=== PATIENT | male | born 1970 | race Caucasian/White ===

== ENCOUNTER 2016-12-20 09:10 | Emergency (ER) | payer MEDICAID, OTHER ==
[2016-12-20 09:16] VITALS: BP 134/88; PULSE 92; RESP 18; TEMP 98.6; O2SAT 93
--- NOTE | 2016-12-20 09:33 | EDPHY ---
H & P Time Seen by Provider: 12/20/16 09:23 HPI/ROS: CHIEF COMPLAINT: "Something popped in my toe" HISTORY OF PRESENT ILLNESS: 46-year-old male history of diabetes, homelessness , walked to the emergency department for evaluation of left 5th toe discomfort after he was walking earlier today " and felt a self-described "pop". He is able to bear weight. No fall from height. No discoloration. No deformity. No fever no chills. No discoloration. He is able to bear weight. He ambulates at baseline with a cane. PHYSICAL EXAM (Prior to examination, patient consented to physical exam, hands were washed and my usual and customary physical exam procedures followed) 1) GENERAL: Well-developed, well-nourished, alert and oriented. Appears to be in no acute distress. 2) HEAD: Normocephalic 3) HEENT: Pupils equal, round, reactive to light bilaterally. 4) LUNGS: Breathing comfortably. 5) MUSCULOSKELETAL: No visible deformity to visualization or palpation. Focally tender to palpation 5th MTP. Normal color normal temperature. No pain with axial loading of the joint. proximal tibia and fibula nontender .5th MT nontender negative Thomas test, compartments soft 6) SKIN: intact. No ecchymosis. No tenting. 7) VASCULAR: DP,PT pulses and cap refill present and brisk DIFFERENTIAL DIAGNOSIS: in no particular order including but not limited to fracture, sprain, compartment syndrome Procedure: Splint A postop shoe and sg tape splint was applied by ER emergency veterinary technician. After application of the splint I returned and re-examined the patient. The splint was adequately immobilizing the joint and distal to the splint the patient's circulation and sensation were intact. Patient shows no signs of compartment syndrome. Was given orthopedic precautions. Smoking Status: Never smoked Constitutional: Initial Vital Signs Temperature (C) 37 C 12/20/16 09:12 Heart Rate 92 12/20/16 09:12 Respiratory Rate 18 12/20/16 09:12 Blood Pressure 134/88 H 12/20/16 09:12 O2 Sat (%) 93 12/20/16 09:12 O2 Delivery Mode Room Air Allergies/Adverse Reactions: fluoxetine HCl [From Prozac] Allergy (Verified 12/20/16 09:12) Home Medications: Medication Instructions Recorded Ipratropium/Albuterol [Combivent 2 inh IH DAILY PRN 12/26/15 Respimat Inhal [place](*)] Amox Tr/K Clav (Augmentin) 1 each PO 12/20/16 [Augmentin 500/125 MG TAB (*)] Benzonatate [Tessalon Pearles (RX)] 100 mg PO 12/20/16 Ibuprofen [Motrin (*)] 600 mg PO 12/20/16 Insulin Aspart Novolog 70/30 0 ml SC 12/20/16 [Novolog Mix 70/30 (*)] Insulin Degludec [Tresiba 0 unit SQ 12/20/16 Flextouch U-200] MDM/Departure - MDM Imaging Results: Imaging Impressions Foot X-Ray 12/20/16 09:31 Impression: Nothing acute radiographically. Images reviewed by myself - Depart Disposition: Home, Routine, Self-Care Clinical Impression: Left foot pain Condition: Good Instructions: Foot Sprain (ED) Additional Instructions: Return to the ER immediately if you experience discoloration, have worsening pain, numbness, tingling, or any other symptoms that concern you. If you received x-rays in the emergency department today, be advised, that ligamentous , tendon, muscular, and other non-bony injury cannot be fully ruled out. Try to keep your affected extremity elevated above the level of your chest, and keep cold packs on the affected area, for the next 48 hours. Referrals: [facility],. [Clinic] - 2-3 days, call for appt.
== END 2016-12-20 10:00 | disposition home or self-care (01) ==
DX: M79.675 Pain in left toe(s) (principal); Z79.4 Long term (current) use of insulin

== ENCOUNTER 2016-12-28 07:30 | Emergency (ER) | payer MEDICAID ==
[2016-12-28 07:43] VITALS: RESP 18; TEMP 97.7
--- NOTE | 2016-12-28 08:32 | EDPHY ---
H & P Time Seen by Provider: 12/28/16 08:11 HPI/ROS: CHIEF COMPLAINT: Right-sided hip and leg pain. HISTORY OF PRESENT ILLNESS: The patient is a 46-year-old male who presents via EMS with one week of right-sided hip pain radiating to his right knee. He has a history of sciatica in his left hip and this feels similar. The pain is worsened with movement. He denies traumas or injury. He denies numbness, weakness, or paresthesias. He has seen [facility] for this complaint and was given a muscle relaxant and pain medication. REVIEW OF SYSTEMS: A complete 10-point review of systems was performed and is negative except for those items mentioned in the HPI. Past Medical/Surgical History: Orthopedic surgeries, hypertension, depression, heart murmur, diabetes type II, chronic pain, sleep apnea. Social History: Homeless. Smoking Status: Never smoked Physical Exam: General Appearance: Alert, obese, appears in pain with movement Eyes: Pupils equal and round, no conjunctival pallor Neck: Normal inspection Neurological: A&O, motor 5/5, including dorsiflexion of the ankle and 1st toe, 1+ DTRs in lower extremities, normal gait Back: Normal inspection, no tenderness Skin: Warm and dry, no rash Extremities: Nontender, no pedal edema Psychiatric: Mood and affect normal Constitutional: Initial Vital Signs Temperature (C) 36.5 C 12/28/16 07:41 Heart Rate 69 12/28/16 07:41 Respiratory Rate 18 12/28/16 07:41 Blood Pressure 161/88 H 12/28/16 07:41 O2 Sat (%) 98 12/28/16 07:41 O2 Delivery Mode Room Air Allergies/Adverse Reactions: fluoxetine HCl [From Prozac] Allergy (Verified 12/20/16 09:12) marijuana Allergy (Verified 12/28/16 07:40) Home Medications: Medication Instructions Recorded Ipratropium/Albuterol [Combivent 2 inh IH DAILY PRN 12/26/15 Respimat Inhal [place](*)] Amox Tr/K Clav (Augmentin) 1 each PO 12/20/16 [Augmentin 500/125 MG TAB (*)] Benzonatate [Tessalon Pearles (RX)] 100 mg PO 12/20/16 Ibuprofen [Motrin (*)] 600 mg PO 12/20/16 Insulin Aspart Novolog 70/30 0 ml SC 12/20/16 [Novolog Mix 70/30 (*)] Insulin Degludec [Tresiba 0 unit SQ 12/20/16 Flextouch U-200] GABAPENTIN 12/28/16 Hydrocodone/Acetaminophen 1 - 2 tab PO Q4H PRN #15 tab 12/28/16 [Hydrocodon-Acetaminophen 5-300] Ibuprofen 600 mg PO TID #30 tablet 12/28/16 Medical Decision Making ED Course/Re-evaluation: 46-year-old obese male with a history of left sciatica presents with a week of atraumatic pain that radiates from his right hip to right knee. He has a normal neuro exam. He will be given a Lidocaine patch and 2 tabs PO [place] in the ED. I have given him prescriptions for Vicodin and Ibuprofen for pain control. He understands to follow up with [facility]. Differential Diagnosis: Differential diagnosis for back pain includes muscular pain, herniated disc, epidural abscess, discitis, spine fracture, intra-abdominal causes and urinary tract infection. - Data Points Medications Given: Discontinued Medications Hydrocodone Bitart/Acetaminophen ([place] 5/325) 2 tab PO EDNOW ONE Stop: 12/28/16 08:45 Last Admin: 12/28/16 09:02 Dose: 2 tab Lidocaine (Lidoderm 5%) 1 ea TD EDNOW ONE Stop: 12/28/16 08:44 Last Admin: 12/28/16 09:02 Dose: 1 ea Departure - Departure Disposition: Home, Routine, Self-Care Clinical Impression: Right sided sciatica Condition: Good Instructions: Sciatica (ED), Lower Back Exercises (ED) Additional Instructions: Follow up with [facility] for reevaluation. Take 600mg Ibuprofen 3 times daily for pain as prescribed. Take Vicodin as prescribed for pain not controlled by Ibuprofen. Return for any serious worsening of condition. Referrals: [facility],. [Clinic] - As per Instructions Prescriptions: Hydrocodone/Acetaminophen [Hydrocodon-Acetaminophen 5-300] 1 - 2 tab PO Q4H PRN #15 tab PRN Reason: Pain, Moderate Ibuprofen 600 mg PO TID #30 tablet Report Scribed for: Talia Ritchie Report Scribed by: Caleb Bajwa Date of Report: 12/28/16 Time of Report: 08:29 Physician Review and Approval Statement: 12/28/16 08:29 Portions of this note were transcribed by a medical reviewer. I personally performed a history, physical exam, medical decision making, and confirmed accuracy of information the transcribed note.
[2016-12-28] MEDS ORDERED: LIDOCAINE 5% 1 EA PATCH TD ONE (08:43)
[2016-12-28] MEDS ORDERED: HYDROCODONE/APAP 5/325 TAB PO ONE (08:44)
[2016-12-28 09:15] VITALS: BP 156/105; PULSE 86; O2SAT 96
== END 2016-12-28 09:24 | disposition home or self-care (01) ==
LOC: EDUNIT#
DX: M54.31 Sciatica, right side (principal); I10 Essential (primary) hypertension; E11.9 Type 2 diabetes mellitus without complications; Z79.4 Long term (current) use of insulin

== ENCOUNTER 2017-01-29 08:48 | Emergency (ER) | payer MEDICAID ==
[2017-01-29] MEDS ORDERED: HYDROmorphONE/DILAUDID 1 MG/ML SYR IVP ONE (09:31)
[2017-01-29] MEDS ORDERED: KETOROLAC 30 MG/1 ML SDV IVP ONE (09:31)
[2017-01-29] MEDS ORDERED: NS 1,000 ML IV ONE (09:31)
--- NOTE | 2017-01-29 09:39 | EDPHY ---
H & P Time Seen by Provider: 01/29/17 08:55 HPI/ROS: HPI Right lower back pain, sciatica. 46-year-old male on foot. Currently homeless and staying at the homeless alf. History of right-sided sciatica. Reports that he got up from bed and twisted his right hip awkwardly this morning which exacerbated his right-sided sciatica. He complains of pain from the right lower back down through his right buttock and down through his right lower extremity to the lower calf area. No bowel or bladder incontinence. He denies loss of sensation or weakness in his lower extremities. No fever. No history of malignancy. He is not an IV drug user. No other red flags. ROS: Constitutional: No fever, no chills. No weakness. Respiratory: No cough. No shortness of breath. Cardiac: No chest pain, no palpitations. Gastrointestinal: No abdominal pain, no vomiting, no diarrhea. Genitourinary: No hematuria. No dysuria or increased frequency with urination. Musculoskeletal: As above. No neck pain. No myalgias or arthralgias. Skin: No rashes. Neurological: No headache. No focal weakness or altered sensation. Past medical history: Social history: Physical Exam: General Appearance: Alert, he appears uncomfortable. Obese habitus. This patient is responding to questions appropriately and in full sentences. This patient appears well-hydrated and well-nourished. Eyes: Pupils equal and round no pallor or injection. No lid edema, erythema or injection. Back exam: He has got right-sided lower lumbar paraspinal tenderness on palpation at the level of L4 through S1 as well as tenderness on palpation over the right sacroiliac joint. No soft tissue changes associated. He has a positive same side straight leg raise test and a negative cross side straight leg raise test. He is neurologically intact in all myotomes in dermatomes of the bilateral lower extremities. Gastrointestinal: Abdomen is soft and nontender, no masses, bowel sounds normal. No focal tenderness at McBurney's point. No Fernandez sign. Neurological: Motor sensory function is grossly intact. Cranial nerves are normal. Gait is normal. Skin: Warm and dry, no rashes. Musculoskeletal: Neck is supple and nontender. Extremities are symmetrical. All joints range without pain or impingement. Psychiatric: No agitation. No depression. Database: EKG: Imaging: Right hip x-ray series: Negative for fracture, subluxation, dislocation. Interpreted by me. Procedures: Emergency department course: IV placed. He was placed on a monitor. No contraindications to NSAIDs. No history of renal dysfunction. He will be given 30 mg of IV Toradol and 1 mg of IV hydromorphone for his sciatica pain. He will also be given 10 mg of IV Decadron. Right hip series x-ray obtained. 10:40 a.m., patient re-evaluated. Results of his x-ray discussed with him. Repeat neurologic Assessment is nonfocal. He is able to get out of bed and ambulate on his own. He states that he feels better and the medications have helped. Plan will be to discharge him with spinal referral as well as follow up with his primary care physician. I will send him home with a take-home pack of Oketo. Return to emergency department precautions were reviewed with him. He understands his follow-up. All of his questions were answered. He was discharged in good condition. Differential Diagnosis: The differential diagnosis on this patient includes but is not limited to sciatica. Fracture, subluxation, dislocation, cauda equina syndrome, acute radiculopathy unlikely. This represents a partial list of diagnoses considered. These considerations are based on history, physical exam, past history, reassessment and diagnostic testing. Smoking Status: Never smoked Constitutional: Initial Vital Signs Temperature (C) 36.8 C 01/29/17 08:55 Heart Rate 87 01/29/17 08:55 Respiratory Rate 16 01/29/17 08:55 Blood Pressure 136/95 H 01/29/17 08:55 O2 Sat (%) 96 01/29/17 08:55 O2 Delivery Mode Room Air Allergies/Adverse Reactions: fluoxetine HCl [From Prozac] Allergy (Verified 01/29/17 09:30) marijuana Allergy (Verified 01/29/17 09:30) Home Medications: Medication Instructions Recorded ASPIRIN 01/29/17 GABAPENTIN 01/29/17 Hydrocodone 01/29/17 Lisinopril 01/29/17 Meloxicam 01/29/17 Medical Decision Making - Diagnostics Imaging Results: Imaging Impressions Hip X-Ray 01/29/17 09:32 Impression: Negative radiographs of the right hip. - Data Points Medications Given: Discontinued Medications Hydromorphone HCl (Dilaudid) 1 mg IVP EDNOW ONE Stop: 01/29/17 09:32 Last Admin: 01/29/17 09:45 Dose: 1 mg Sodium Chloride (Ns) 1,000 mls @ 0 mls/hr IV ONCE ONE; Wide Open PRN Reason: Protocol Stop: 01/29/17 09:32 Last Admin: 01/29/17 09:47 Dose: 1,000 mls Ketorolac Tromethamine (Toradol) 30 mg IVP EDNOW ONE Stop: 01/29/17 09:32 Last Admin: 01/29/17 09:45 Dose: 30 mg Departure - Departure Disposition: [facility] IP Clinical Impression: Sciatica Condition: Good Instructions: Sciatica (ED) Additional Instructions: Read and follow provided instructions. Follow-up with your primary care physician at [facility] in 1-2 days for re -evaluation and ongoing management of your sciatica. They can also refer you to a spinal specialist.. O[place]o/Percocet dosin-2 every 4-[address] not drive on this medication. Return to the emergency department for worsening pain, loss of sensation in your lower extremities, loss of strength in her lower extremities, bowel or bladder incontinence, fever or other serious concerns. Referrals: [facility],. [Clinic] - As per Instructions
[2017-01-29] MEDS ORDERED: DEXAMETHASONE 10 MG/ML VIAL IVP ONE (10:04)
[2017-01-29] MEDS ORDERED: HYDROCOD/APAP 5/325 PREPACK#6 BTL TAKEHOME ONE (10:45)
[2017-01-29 11:26] VITALS: BP 127/86; PULSE 81; RESP 17; TEMP 98.4; O2SAT 95
== END 2017-01-29 11:25 | disposition home or self-care (01) ==
LOC: EDUNIT#
DX: M54.41 Lumbago with sciatica, right side (principal); Z79.82 Long term (current) use of aspirin
CPT/HCPCS: 96374; J1170; J1885

== ENCOUNTER 2017-01-30 08:35 | Emergency (ER) | payer MEDICAID ==
[2017-01-30 08:51] VITALS: RESP 18
[2017-01-30] MEDS ORDERED: OXYCODONE/APAP 5/325 TAB PO ONE (09:08)
[2017-01-30] MEDS ORDERED: KETOROLAC 30 MG/1 ML SDV IM ONE (09:08)
--- NOTE | 2017-01-30 09:15 | EDPHY ---
H & P Smoking Status: Never smoked Time Seen by Provider: 01/30/17 08:56 HPI/ROS: CHIEF COMPLAINT: Chronic Leg pain HISTORY OF PRESENT ILLNESS: This is a 46-year-old male presenting to the emergency department complaining of right leg pain. Patient was seen yesterday here in the ER for the same symptoms, diagnosed with sciatica also constipation. Patient is sent home with pain medicine but did not take it, this is a chronic condition per patient due to his constant activity and having to carry his bags back and forth to the custodial. Patient states he is having an increased pain because the custodial that he is at will not let him leave his tool box on wheels at the custodial and he is having constantly move it. Denies any new complaints no nausea no vomiting. Discharge last night ambulatory without any problems REVIEW OF SYSTEMS: Constitutional: No fever, no chills. Eyes: No discharge. ENT: No sore throat. Cardiovascular: No chest pain, no palpitations. Respiratory: No cough, no shortness of breath. Gastrointestinal: No abdominal pain, no vomiting. Constipation Genitourinary: No hematuria. Musculoskeletal: No back pain. Right hip/right leg pain Skin: No rashes. Neurological: No headache. (Sofia Farrar) Physical Exam: General Appearance: Alert, no distress. Obese Eyes: Pupils equal and round no pallor or injection. ENT, Mouth: Mucous membranes moist. Respiratory: There are no retractions, nonlabored respiratory effort Cardiovascular: Regular rate and rhythm. Gastrointestinal: Abdomen is soft and nontender, no masses, bowel sounds normal. Neurological: No focal deficits Skin: Warm and dry, no rashes. Musculoskeletal: Neck is supple nontender. Extremities: Right hip tenderness on palpation, right hamstring tenderness on palpation positive right lower extremity straight leg raises. Positive CMS intact Psychiatric: Patient is oriented X 3, acting appropriate (Sofia Farrar) Constitutional: Initial Vital Signs Temperature (C) 37 C 01/30/17 08:35 Heart Rate 72 01/30/17 08:35 Respiratory Rate 18 01/30/17 08:35 Blood Pressure 136/87 H 01/30/17 08:35 O2 Sat (%) 97 01/30/17 08:35 O2 Delivery Mode Room Air Allergies/Adverse Reactions: fluoxetine HCl [From Prozac] Allergy (Verified 01/29/17 09:30) marijuana Allergy (Verified 01/29/17 09:30) Home Medications: Medication Instructions Recorded ASPIRIN 01/29/17 GABAPENTIN 01/29/17 Hydrocodone 01/29/17 Lisinopril 01/29/17 Meloxicam 01/29/17 Lidocaine 5% [Lidoderm 5% Patch 1 ea TD DAILY #3 patch 01/30/17 (*)] Medical Decision Making ED Course/Re-evaluation: The patient was evaluated and managed by the INCL[facility]. My cosignature indicates that I reviewed the chart and I agree with the findings and plan of care as documented. I am the secondary supervising physician. (Jami Hendrickson) Discussed ED plan of care: IM Toradol, p.o. pain medicine, Mag citrate. Reviewed records from visit on 01/29/2017. Also discussed with patient chronic sciatica there is no quick fix for this condition, to matter decreasing prolonged pressure frequent position changes also ibuprofen can be beneficial. 0945: Discussed discharge plan with patient. Follow up with primary care physician at [facility] either Saturday or Saturday. Decrease any prolonged pressure or strenuous activity. I would also recommend talking with the custodial to see if there is a way that you can store your heavy tool bags severe not having to be dragging it around. MiraLax on a daily basis for the next 7 days, also narcotics can be a contributing factor to your constipation. I would not be giving him any narcotics to go, you have had a prescription refill on 12/28/2016 and 01/23/2017 for number 30 of [place] per the COPD. 1000: Case management at patient bedside. Discharge home---> stable, ambulatory with steady gait. Discussed all discharge instructions (Sofia Farrar ) Differential Diagnosis: Other differential diagnosis considered but not limited to sciatica, constipation, and hip dislocation (Sofia Farrar) - Data Points Medications Given: Discontinued Medications Ketorolac Tromethamine (Toradol) 60 mg IM EDNOW ONE Stop: 01/30/17 09:09 Last Admin: 01/30/17 09:17 Dose: 60 mg Lidocaine (Lidoderm 5%) 1 ea TD DAILY EMILY Stop: 07/30/17 08:59 Last Admin: 01/30/17 10:22 Dose: 1 ea Magnesium Citrate (Magnesium Citrate) 300 ml PO ONCE ONE Stop: 01/30/17 09:19 Last Admin: 01/30/17 09:25 Dose: 300 ml Oxycodone/Acetaminophen (Percocet 5/325) 1 tab PO EDNOW ONE Stop: 01/30/17 09:09 Last Admin: 01/30/17 09:17 Dose: 1 tab Departure - Departure Disposition: Home, Routine, Self-Care Clinical Impression: Sciatica of right side Condition: Good Instructions: Constipation (ED), High Fiber Diet (ED), Sciatica (ED), Lower Back Exercises (ED) Referrals: NONE *PRIMARY CARE P,. [Primary Care Provider] - As per Instructions [facility],. [Clinic] - As per Instructions Prescriptions: Lidocaine 5% [Lidoderm 5% Patch (*)] 1 ea TD DAILY #3 patch
[2017-01-30] MEDS ORDERED: MAGNESIUM CITRATE 300 ML BOTTLE PO ONE (09:18)
[2017-01-30] MEDS ORDERED: LIDOCAINE 5% 1 EA PATCH TD ONE (10:13)
[2017-01-30 10:26] VITALS: BP 141/85; PULSE 85; TEMP 98.4; O2SAT 96
[2017-01-30] MEDS ORDERED: PATCH REMOVAL 1 EA PATCH TD SCH (21:00)
[2017-01-31] MEDS ORDERED: LIDOCAINE 5% 1 EA PATCH TD SCH (09:00)
== END 2017-01-30 10:25 | disposition home or self-care (01) ==
LOC: EDUNIT#
DX: M54.31 Sciatica, right side (principal); Z79.82 Long term (current) use of aspirin
CPT/HCPCS: J1885

== ENCOUNTER 2017-02-16 11:09 | Emergency (ER) | payer MEDICAID ==
--- NOTE | 2017-02-16 11:17 | EDPHY ---
ED Progress Note Narrative: Sofia Farrar and I discussed the case. This patient has a chronic pain problem. He has numerous pain medicines and muscle relaxants as he just size PCP yesterday. There is nothing more we can do here in the emergency department for his chronic pain. We will give him a Lidoderm patch possibly with capsaicin this patient does not require any imaging
--- NOTE | 2017-02-16 11:22 | EDPHY ---
H & P Time Seen by Provider: 02/16/17 11:12 HPI/ROS: CHIEF COMPLAINT: sciatica HISTORY OF PRESENT ILLNESS: This is a 46-year-old male presenting to the emergency department via EMS, patient reports history of chronic leg pain chronic sciatica has been seen here in the emergency department multiple times for same problem. Patient states he did see his PCP yesterday was given prescription for Percocet meloxicam has medication with him, he reports he has been doing an increased amount walking but he is not having to carry around or pull his heavy tool chest which is a benefit. We have discussed him following up with this primary care this week to continue with physical therapy no pain medications are going to be prescribed because the fact he has pain medications with him discussed placing a lidocaine patch to the area of discomfort. Denies any new complaints or new medical problems REVIEW OF SYSTEMS: Constitutional: No fever, no chills. Eyes: No discharge. ENT: No sore throat. Cardiovascular: No chest pain, no palpitations. Respiratory: No cough, no shortness of breath. Gastrointestinal: No abdominal pain, no vomiting. Genitourinary: No hematuria. Musculoskeletal: Chronic lower back pain, right leg pain sciatica Skin: No rashes. Neurological: No headache. Smoking Status: Never smoked Physical Exam: General Appearance: Alert, no distress. HEENT: Pupils equal and round no pallor or injection. Mucous membranes moist. Respiratory: There are no retractions, lungs are clear to auscultation. Cardiovascular: Regular rate and rhythm. Gastrointestinal: Abdomen is soft and nontender, no masses, bowel sounds normal. Neurological: No focal deficits. Answering questions appropriately Skin: Warm and dry, no rashes. Musculoskeletal: Neck is supple nontender. Extremities: symmetrical, right leg hamstring tenderness on palpation. Positive right straight leg raises. Ambulatory with a cane Psychiatric: Patient is oriented X 3, acting appropriately Constitutional: Initial Vital Signs Temperature (C) 36.6 C 02/16/17 11:15 Heart Rate 69 02/16/17 11:15 Respiratory Rate 19 02/16/17 11:15 Blood Pressure 130/82 H 02/16/17 11:15 O2 Sat (%) 97 02/16/17 11:15 O2 Delivery Mode Room Air Allergies/Adverse Reactions: fluoxetine HCl [From Prozac] Allergy (Verified 02/16/17 11:14) marijuana Allergy (Verified 02/16/17 11:14) Home Medications: Medication Instructions Recorded ASPIRIN 01/29/17 GABAPENTIN 01/29/17 Hydrocodone 01/29/17 Lisinopril 01/29/17 Meloxicam 01/29/17 Lidocaine 5% [Lidoderm 5% Patch 1 ea TD DAILY #3 patch 01/30/17 (*)] AMOXICILLIN 02/16/17 Atorvastatin Calcium 02/16/17 Lidocaine 5% [Lidoderm 5% Patch 1 ea TD DAILY #3 patch 02/16/17 (*)] Tizanidine HCl 02/16/17 Medical Decision Making ED Course/Re-evaluation: Discussed ED plan of care with patient: Lidocaine patch was placed, discussed patient plan with Dr. Palacios no imaging is needed today. The patient has pain medicine at bedside Percocet and meloxicam gabapentin for his chronic pain. He will follow up with his primary care provider this week for further evaluation with physical therapy. Discharge home---> stable, discussed all discharge instructions Differential Diagnosis: Other differential diagnosis considered but not limited to herniated disc, hip dislocation and neuropathy Departure - Departure Disposition: Home, Routine, Self-Care Clinical Impression: Sciatica of right side Condition: Good Instructions: Sciatica (ED), Lumbar Radiculopathy (ED) Additional Instructions: 1. Follow up with your primary care provider this week to re-evaluate your physical therapy 2. Decrease prolonged pressure on right lower extremity 3. Take your pain medication as prescribed. I will give you a prescription for lidocaine patches this seems to be a benefit for you since it did help on your last visit Referrals: NONE *PRIMARY CARE P,. [Primary Care Provider] - As per Instructions [facility],. [Clinic] - As per Instructions Prescriptions: Lidocaine 5% [Lidoderm 5% Patch (*)] 1 ea TD DAILY #3 patch
[2017-02-16] MEDS ORDERED: LIDOCAINE 5% 1 EA PATCH TD ONE (11:23)
[2017-02-16 11:57] VITALS: BP 124/76; PULSE 83; RESP 17; TEMP 97.7; O2SAT 95
[2017-02-16] MEDS ORDERED: PATCH REMOVAL 1 EA PATCH TD SCH (21:00)
[2017-02-17] MEDS ORDERED: LIDOCAINE 5% 1 EA PATCH TD SCH (09:00)
== END 2017-02-16 11:56 | disposition home or self-care (01) ==
LOC: EDUNIT#
DX: M54.31 Sciatica, right side (principal); Z79.82 Long term (current) use of aspirin

== ENCOUNTER 2017-03-24 01:18 | Emergency (ER) | payer MEDICAID ==
[2017-03-24] MEDS ORDERED: IBUPROFEN 600 MG TAB PO ONE (01:25)
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
[2017-03-24 01:31] VITALS: BP 145/77; PULSE 70; RESP 18; TEMP 98.2; O2SAT 100
== END 2017-03-24 02:31 | disposition home or self-care (01) ==
LOC: EDUNIT#
DX: M54.5 Low back pain (principal); G89.29 Other chronic pain; E11.9 Type 2 diabetes mellitus without complications; J45.909 Unspecified asthma, uncomplicated; I10 Essential (primary) hypertension; Z79.82 Long term (current) use of aspirin

== ENCOUNTER 2018-06-19 08:34 | Emergency (ER) | payer MEDICAID ==
--- NOTE | 2018-06-19 09:09 | EDPHY ---
General - History Smoking Status: Never smoked Time Seen by Provider: 06/19/18 09:02 Narrative: CHIEF COMPLAINT: Low blood sugar, confused, cough HISTORY OF PRESENT ILLNESS: Patient presents by EMS with complaints of confusion, low blood sugar and cough. The patient says that he felt well last night other than ongoing cough. He took his regularly scheduled insulin including Tresiba and NovoLog. He says that he woke this morning feeling confused, shaky and had difficulty ambulating. EMS was activated and he reportedly had a blood sugar of 35 at time arrival. They administered oral glucose, the juice and peanut butter and jelly sandwich. He says that he is feeling significantly better but still mildly shaky. He has no headache. No chest pain. He does have cough that he has had for the past 1-2 weeks. He was evaluated for this 3 days ago with clinical diagnosis of bronchitis with no imaging. He has been placed on a nebulizer. He has no abdominal urinary complaints. No rash. No neck pain or stiffness. No fever. He denies deliberately taking too much insulin. No other associated complaints or modifying factors. REVIEW OF SYSTEMS: 10 systems were reviewed and negative with the exception of the elements mentioned in the history of present illness. PCP: [facility], Dr. Morris SPECIALISTS: [facility] PAST MEDICAL HISTORY: Type 2 diabetic insulin-dependent, osteoarthritis, hypertension, depression, heart murmur, chronic pain, fatty liver, sleep apnea, asthma, bronchitis PAST SURGICAL HISTORY: No recent surgical history SOCIAL HISTORY: Nonsmoker. Currently homeless. FAMILY HISTORY: Noncontributory EXAMINATION: General Appearance: Alert, no distress. Conversing in complete sentences. Well appearing. Head: normocephalic, atraumatic Eyes: Pupils equal and round, no conjunctival pallor or injection ENT, Mouth: Mucous membranes moist Neck: Normal inspection, supple, non-tender Respiratory: Scattered rhonchi and wheezing. No crackles. No consolidation or diminishment. Cardiovascular: Regular rate and rhythm Gastrointestinal: Obese Abdomen is soft and nontender. No tympany rigidity. Back: non-tender, no bony abnormalities Neurological: A&O, nonfocal, normal gait Skin: Warm and dry, no rash Extremities: Nontender, no pedal edema Psychiatric: Mood and affect normal. Denies suicidal ideation. DIFFERENTIAL DIAGNOSES: Including but not limited to accidental insulin overdose, hypoglycemia, insulin- dependent diabetic pneumonia, acute kidney injury MDM: 9:05 a.m. Acute hypoglycemia in an insulin-dependent type 2 diabetic. He admits that he did not eat well enough after his insulin last night and thinks that this was the cause. He is feeling significantly better after oral glucose sources x3. He is still eating a sandwich at this time. He is feels somewhat shaky but he has a normal neuro examination. He has normal vital signs. He is afebrile. I have ordered a chest x-ray as he has an ongoing cough with no x-ray of this complaint. He is resting comfortably in no acute distress. We will continue to check his blood sugar as well. 9:30 a.m. Chest x-ray has been read by radiologist bronchitis with no evidence of pneumonia. Patient's I have re-evaluated this patient. They remain hemodynamically stable and in no distress. No further complaints at this time. Fingerstick blood sugars 175. I have re-evaluated the patient. Given that his cough is been present for nearly 10 days and that he is a diabetic, I have elected to treat him with a Z-Koby for the possibility of bacterial bronchitis. I have also recommended ibuprofen 600 every 6-8 hours and [id number] cough medicine, dextromethorphan. He has albuterol and a nebulizer at home. He has a glucose monitor that I have instructed him to use more frequently today. He has an appointment tomorrow morning with primary care physician. Case management will visit with him for assistance for disposition. He is discharged home stable condition. SUPERVISION: Patient was independently examined, but I discussed the case with my secondary supervising physician Dr. Blanco CONSULTATION: Case management (Henrry Mckeon) Medical Decision Making: PHYSICIAN DOCUMENTATION: The patient was evaluated and managed by the Physician Fig Bar Machine Operator. My co- signature indicates that I have reviewed this chart and I agree with the findings and plan of care as documented. I am the secondary supervising physician. (Robel Blanco) - Diagnostics Imaging Results: Imaging Impressions Chest X-Ray 06/19/18 09:09 Impression: Bronchitis. No pneumonia. - Objective Vital Signs: Initial Vital Signs Temperature (C) 36.7 C 06/19/18 08:38 Heart Rate 88 06/19/18 08:38 Respiratory Rate 18 06/19/18 08:38 Blood Pressure 159/99 H 06/19/18 08:38 O2 Sat (%) 97 06/19/18 08:38 O2 Delivery Mode Room Air Allergies/Adverse Reactions: fluoxetine HCl [From Prozac] Allergy (Verified 03/24/17 01:31) marijuana Allergy (Verified 03/24/17 01:31) Home Medications: Medication Instructions Recorded ASPIRIN 01/29/17 Lisinopril 01/29/17 Atorvastatin Calcium 06/19/18 Azithromycin [Zithromax] 250 mg PO DAILY #6 tab 06/19/18 Dextromethorphan Polistirex 30 mg PO BID PRN #1 btl 06/19/18 [Delsym] Ibuprofen 600 mg PO Q8 PRN #30 tablet 06/19/18 Insulin Aspart Novolog 70/30 06/19/18 Lamictal 06/19/18 Lasix 06/19/18 Omeprazole 06/19/18 Zyprexa 06/19/18 Laboratory Results: 06/19/18 09:22 POC Glucose 175 mg/dL H mg/dL (70-100) Point of Care Test Results: Chemistry 06/19/18 09:22 POC Glucose 175 mg/dL H mg/dL (70-100) Departure - Departure Disposition: Home, Routine, Self-Care Clinical Impression: Diabetes mellitus with hypoglycemia without coma Qualifiers: Diabetes mellitus type: type 2 Diabetes mellitus overnight stocker insulin use: with overnight stocker use Qualified Code(s): E11.649 - Type 2 diabetes mellitus with hypoglycemia without coma Acute bronchitis Qualifiers: Bronchitis organism: unspecified organism Qualified Code(s): J20.9 - Acute bronchitis, unspecified Condition: Good Instructions: Glucose Test Strips (Not Applicable), Hypoglycemia in a Person with Diabetes (ED), Acute Bronchitis (ED), How to Check your Blood Sugar (ED) Additional Instructions: 1. Continue to monitor your blood glucose regularly today. Recommend checking prior to administer insulin throughout the day 2. Zithromax as prescribed to completion, 1 pill once daily for 5 days 3. Ibuprofen 600 mg every 6-8 hours as needed for the next 5-7 days 4. Dextromethorphan [id number] as prescribed as needed for cough 5. Keep your appointment tomorrow morning with primary care physician as scheduled 6. ED precautions for any return of your confusion or difficulty ambulating, low blood sugar or intolerance of food Referrals: Syl Morris NP [Non Staff and Non MD] - As per Instructions Physician,Emergency Dept, [Medical Doctor] - As per Instructions Prescriptions: Azithromycin [Zithromax] 250 mg PO DAILY #6 tab Dextromethorphan Polistirex [Delsym] 30 mg PO BID PRN #1 btl PRN Reason: Cough, Mild Ibuprofen 600 mg PO Q8 PRN #30 tablet PRN Reason: Pain, Mild
[2018-06-19 10:04] VITALS: BP 135/73
--- NOTE | 2018-06-19 10:19 | ASMTCMCOM ---
CM Note CM Note Notes: Met with patient just prior to discharge from the ER. Patient is currently staying at [facility] and is current at [facility]. His PCP is Syl Morris and he has an apoointment scheduled with her tomorrow morning at 0805. I have faxed a copy of patient's ER report to Syl @ [facility]. Patient confirms that he does have a functioning glucometer and that he will be able to get himself back to the care home, as well as to his appointment at the clinic in the morning Date Signed: 06/19/2018 10:19 AM Electronically Signed By:Christina Hubbard RN
== END 2018-06-19 10:30 | disposition home or self-care (01) ==
LOC: EDUNIT#
DX: J20.9 Acute bronchitis, unspecified (principal); E11.649 Type 2 diabetes mellitus with hypoglycemia without coma; Z79.4 Long term (current) use of insulin; I10 Essential (primary) hypertension

== ENCOUNTER 2018-07-08 08:08 | Emergency (ER) | payer MEDICAID ==
--- NOTE | 2018-07-08 08:27 | EDPHY ---
H & P Stated Complaint: left knee pain Time Seen by Provider: 07/08/18 08:17 HPI/ROS: CHIEF COMPLAINT: Left knee pain and swelling HISTORY OF PRESENT ILLNESS: The patient presents to the ED with an acute exacerbation of chronic left knee pain and swelling. The patient has a history of obesity. He also has a history of DJD. He has chronic complaints of knee pain. He has had prior arthroscopy in the past. The patient denies any acute fall or trauma. He denies fever. He denies additional arthralgias. The patient reportedly has seen orthopedic surgeon in the past but not recently. He denies additional acute complaints. REVIEW OF SYSTEMS: A comprehensive 10 point review of systems is otherwise negative aside from elements mentioned in the history of present illness. Source: Patient Exam Limitations: No limitations - Personal History Current Tetanus/Diphtheria Vaccine: Yes Current Tetanus Diphtheria and Acellular Pertussis (TDAP): Yes Tetanus Vaccine Date: < 10 YEARS - Medical/Surgical History Hx Asthma: Yes Hx Chronic Respiratory Disease: Yes Hx Diabetes: Yes Hx Cardiac Disease: No Hx Renal Disease: No Hx Cirrhosis: No Hx Alcoholism: No Hx HIV/AIDS: No Hx Splenectomy or Spleen Trauma: No Other PMH: PSH: R shoulder; L knee scope; tooth extraction;. PMH: htn; depression; heart murmur; T2DM; chronic pain; fatty liver; sleep apnea. Asthma. Bronchitis - Social History Smoking Status: Never smoked - Physical Exam Exam: General Appearance: Obese male, no acute distress Eyes: Pupils equal and round no pallor or injection ENT, Mouth: Mucous membranes moist Respiratory: There are no retractions, lungs are clear to auscultation Cardiovascular: Regular rate and rhythm Gastrointestinal: Abdomen is soft and nontender, no masses, bowel sounds normal Neurological: 5/5 strength all 4 extremities Skin: Warm and dry, no rashes Musculoskeletal: Neck is supple nontender Extremities: Left knee demonstrates a small effusion, no significant warmth or erythema, painful active and passive range of motion Psychiatric: Patient is oriented X 3, there is no agitation Constitutional: Initial Vital Signs Temperature (C) 36.5 C 07/08/18 08:12 Heart Rate 92 07/08/18 08:12 Respiratory Rate 18 07/08/18 08:12 Blood Pressure 134/89 H 07/08/18 08:12 O2 Sat (%) 96 07/08/18 08:12 O2 Delivery Mode Room Air Allergies/Adverse Reactions: fluoxetine HCl [From Prozac] Allergy (Verified 03/24/17 01:31) marijuana Allergy (Verified 03/24/17 01:31) Home Medications: Medication Instructions Recorded ASPIRIN 01/29/17 Lisinopril 01/29/17 Atorvastatin Calcium 06/19/18 Azithromycin [Zithromax] 250 mg PO DAILY #6 tab 06/19/18 Dextromethorphan Polistirex 30 mg PO BID PRN #1 btl 06/19/18 [Delsym] Ibuprofen 600 mg PO Q8 PRN #30 tablet 06/19/18 Insulin Aspart Novolog 70/30 06/19/18 Lamictal 06/19/18 Lasix 06/19/18 Omeprazole 06/19/18 Zyprexa 06/19/18 Medical Decision Making ED Course/Re-evaluation: The patient presents to the ED with an acute exacerbation of chronic left knee pain likely secondary to underlying osteoarthritis. There is nothing to suggest an acute fall or trauma. I do not feel that plain films will be helpful. The patient also has no clinical evidence of an infection or inflammatory arthritis. The patient has been encouraged to continue to use NSAIDs. He should follow up with Orthopedic surgery to discuss further treatment options for his osteoarthritis. The patient does receive care through the [facility]. He has been encouraged to continue to work with his primary care provider. Departure - Departure Disposition: Home, Routine, Self-Care Clinical Impression: Knee pain, left Condition: Good Instructions: Knee Pain (ED) Additional Instructions: 1. Take Ibuprofen or Motrin 600 mg by mouth three times a day. 2. Please follow up with the orthopedic surgeon you have been referred to. Referrals: George Raymond MD [Medical Doctor] - As per Instructions
[2018-07-08] MEDS ORDERED: IBUPROFEN 800 MG TAB PO ONE (08:58)
[2018-07-08 09:57] VITALS: BP 139/78
--- NOTE | 2018-07-08 14:52 | ASMTCMCOM ---
CM Note CM Note Notes: Pt presented to the ED via EMS from [facility] for left knee pain. Pt evaluated and ready for discharge. This CM spoke w/pt and confirmed that he is still be seen by Syl Morris at the [facility]. Pt states he has an appt w/Syl tomorrow morning. This CM called and spoke w/EVA Alegre Tape Sewer at [facility] and she states pt was seen at the end of May for left knee pain and they had an x-ray completed which showed arthritis; they referred pt to an orthopedist but it seems the referral didn't go through. Sis states she will look into the ortho referral and that pt can come to the [facility] today and check in with her if he wants. Pt was having a lot of difficulty standing up from a seated position w/his crutches so this CM was able to locate and provide a 4point walker to him. Pt appreciative. This CM arranged for a Medicaid cab (conf# [id number]) to the [facility] so pt could check in w/Sis re:the ortho follow-up, tomorrows appt and if there is anything more she can do for him today. CM available for further assistance if needed. Date Signed: 07/08/2018 02:51 PM Electronically Signed By:Aide Peñaloza RN
== END 2018-07-08 09:55 | disposition home or self-care (01) ==
LOC: EDUNIT#
DX: M25.562 Pain in left knee (principal); M79.89 Other specified soft tissue disorders

== ENCOUNTER 2018-07-27 11:28 | Emergency (ER) | payer MEDICAID ==
[2018-07-27] MEDS ORDERED: PANTOPRAZOLE SODIUM 40 MG VIAL IVP ONE (12:05)
[2018-07-27 12:38] LABS: PLATELET COUNT 177 10^3/uL (150-400)
--- NOTE | 2018-07-27 13:53 | EDPHY ---
H & P Stated Complaint: N/V/D Time Seen by Provider: 07/27/18 11:56 HPI/ROS: Chief complaint: Abdominal discomfort, nausea/vomiting/diarrhea History of present illness: This is a 47-year-old male who presents with EMS from the homeless group home for evaluation of abdominal discomfort with associated nausea, vomiting and diarrhea. He reports the onset of the cramping last night. He describes a diffuse cramping. He initially developed nausea and vomiting. He has subsequently developed diarrhea. No report of blood in the vomit or diarrhea. No report of fevers. He denies specific sick contacts. No recent travel or antibiotic use. Review of systems: A 10 point review of systems was obtained and other than described above was negative - Personal History Tetanus Vaccine Date: < 10 YEARS - Medical/Surgical History Hx Asthma: Yes Hx Chronic Respiratory Disease: Yes Hx Diabetes: Yes Hx Cardiac Disease: No Hx Renal Disease: No Hx Cirrhosis: No Hx Alcoholism: No Hx HIV/AIDS: No Hx Splenectomy or Spleen Trauma: No Other PMH: PSH: R shoulder; L knee scope; tooth extraction;. PMH: htn; depression; heart murmur; T2DM; chronic pain; fatty liver; sleep apnea. Asthma. Bronchitis - Social History Smoking Status: Never smoked - Physical Exam Exam: General Appearance: Alert, nontoxic. Eyes: Pupils equal and round no pallor or injection. ENT, Mouth: Mucous membranes moist. Respiratory: There are no retractions, lungs are clear to auscultation. Cardiovascular: Regular rate and rhythm. Gastrointestinal: Bowel sounds are normal. The abdomen is soft, nondistended, mild tenderness in the epigastric region otherwise unremarkable. Neurological: Alert and oriented x4. Skin: Warm and dry, no rashes. Musculoskeletal: Ambulating well. Psychiatric: Patient is oriented X 3, there is no agitation. Constitutional: Initial Vital Signs Temperature (C) 37 C 07/27/18 11:28 Heart Rate 108 H 07/27/18 11:28 Respiratory Rate 16 07/27/18 11:28 Blood Pressure 142/79 H 07/27/18 11:28 O2 Sat (%) 94 07/27/18 11:28 O2 Delivery Mode Room Air Allergies/Adverse Reactions: fluoxetine HCl [From Prozac] Allergy (Verified 03/24/17 01:31) marijuana Allergy (Verified 03/24/17 01:31) Home Medications: Medication Instructions Recorded ASPIRIN 01/29/17 Lisinopril 01/29/17 Atorvastatin Calcium 06/19/18 Azithromycin [Zithromax] 250 mg PO DAILY #6 tab 06/19/18 Dextromethorphan Polistirex 30 mg PO BID PRN #1 btl 06/19/18 [Delsym] Ibuprofen 600 mg PO Q8 PRN #30 tablet 06/19/18 Insulin Aspart Novolog 70/30 06/19/18 Lamictal 06/19/18 Lasix 06/19/18 Omeprazole 06/19/18 Zyprexa 06/19/18 Medical Decision Making ED Course/Re-evaluation: Patient seen under the supervision of my secondary supervising physician Dr. Jeevan Lewis. Patient presents for abdominal cramping with nausea, vomiting and diarrhea. On presentation he is nontoxic. Physical exam is unremarkable including a benign abdominal exam. Blood studies with no leukocytosis, normal LFTs and lipase. He is symptomatically treated with improvement in symptoms. He is tolerating oral challenges. Repeat abdominal exam prior to discharge remains benign. He will be discharged. He is asked to follow up with a primary care doctor and referral information is given. Home care is discussed. He is given strict precautions if symptoms worsen or new symptoms develop he is to return immediately to the emergency department. Patient voiced understanding and agreement with plan. Differential Diagnosis: Included but not limited to gastritis, gastroenteritis, pancreatitis, biliary tract disease, colitis, appendicitis - Data Points Laboratory Results: Laboratory Results 07/27/18 12:26 07/27/18 12:26 07/27/18 07/27/18 12:26 12:26 WBC 8.08 10^3/uL 10^3/uL (3.80-9.50) RBC 5.22 10^6/uL 10^6/uL (4.40-6.38) Hgb 14.3 g/dL g/dL (13.7-17.5) Hct 43.5 % % (40.0-51.0) MCV 83.3 fL fL (81.5-99.8) MCH 27.4 pg L pg (27.9-34.1) MCHC 32.9 g/dL g/dL (32.4-36.7) RDW 13.7 % % (11.5-15.2) Plt Count 177 10^3/uL 10^3/uL (150-400) MPV 11.9 fL H fL (8.7-11.7) Neut % (Auto) Not Reported Lymph % (Auto) Not Reported [place] % (Auto) Not Reported Eos % (Auto) Not Reported Baso % (Auto) Not Reported Nucleat RBC Rel Count Not Reported Absolute Neuts (auto) Not Reported Absolute Lymphs (auto) Not Reported Absolute Monos (auto) Not Reported Absolute Eos (auto) Not Reported Absolute Basos (auto) Not Reported Absolute Nucleated RBC Not Reported Immature Gran % Not Reported Seg Neutrophils % 83.0 % % Band Neutrophils % 9.0 % % Lymphocytes % 3.0 % % Monocytes % 5.0 % % Eosinophils % 0.0 % % Basophils % 0.0 % % Metamyelocytes % 0.0 % % Myelocytes % 0.0 % % Promyelocytes % 0.0 % % Blast Cells % 0.0 % % Immature Gran # Not Reported Absolute Seg Neuts 6.71 10^3/uL H 10^3/uL (1.70-6.50) Absolute Band Neuts 0.73 10^3/uL H 10^3/uL (0.00-0.70) Absolute Lymphocytes 0.24 10^3/uL L 10^3/uL (1.00-3.00) Absolute Monocytes 0.40 10^3/uL 10^3/uL (0.30-0.80) Absolute Eosinophils 0.00 10^3/uL L 10^3/uL (0.03-0.40) Absolute Basophils 0.00 10^3/uL L 10^3/uL (0.02-0.10) Absolute Metamyelocyte 0.00 10^3/mL 10^3/mL (0.00-0.00) Absolute Myelocytes 0.00 10^3/mL 10^3/mL (0.00-0.00) Absolute Promyelocytes 0.00 10^3/uL 10^3/uL (0.00-0.00) Absolute Plasma Cells 0.00 10^3/uL 10^3/uL (0.00-0.00) Nucleated RBCs 0 /100 WBC /100 WBC (0-0) Absolute Blast Cells 0.00 10^3/uL 10^3/uL (0.00-0.00) Plasma Cells % 0.0 % % Platelet Estimate ADEQUATE (ADEQ) Microcytic Cells 1+ H Sodium 139 mEq/L mEq/L (135-145) Potassium 4.0 mEq/L mEq/L (3.3-5.0) Chloride 105 mEq/L mEq/L (97-110) Carbon Dioxide 24 mEq/l mEq/l (22-31) Anion Gap 10 mEq/L mEq/L (6-14) BUN 21 mg/dL mg/dL (7-23) Creatinine 0.6 mg/dL L mg/dL (0.7-1.3) Estimated GFR > 60 Glucose 173 mg/dL H mg/dL (70-100) Calcium 8.4 mg/dL L mg/dL (8.5-10.4) Total Bilirubin 0.8 mg/dL mg/dL (0.1-1.4) Conjugated Bilirubin 0.3 mg/dL mg/dL (0.0-0.5) Unconjugated Bilirubin 0.5 mg/dL mg/dL (0.0-1.1) AST 36 IU/L IU/L (17-59) ALT 39 IU/L IU/L (21-72) Alkaline Phosphatase 104 IU/L IU/L (38-126) Total Protein 6.6 g/dL g/dL (6.3-8.2) Albumin 3.9 g/dL g/dL (3.5-5.0) Lipase 40 IU/L IU/L (23-300) Medications Given: Discontinued Medications Pantoprazole Sodium (Protonix) 40 mg IVP EDNOW ONE Stop: 07/27/18 12:06 Last Admin: 07/27/18 12:28 Dose: 40 mg Departure - Departure Disposition: Home, Routine, Self-Care Clinical Impression: Vomiting and diarrhea Abdominal pain Qualifiers: Abdominal location: generalized Qualified Code(s): R10.84 - Generalized abdominal pain Condition: Good Instructions: Acute Nausea and Vomiting (ED), Acute Abdominal Pain (ED) Additional Instructions: Follow-up with a primary care doctor for recheck If symptoms worsen or new symptoms develop return to the emergency room for recheck Referrals: Patient,NotPresent [Primary Care Provider] - As per Instructions [facility],. [Clinic] - As per Instructions
[2018-07-27 14:14] VITALS: BP 138/77
== END 2018-07-27 14:11 | disposition home or self-care (01) ==
LOC: EDUNIT#
DX: R10.84 Generalized abdominal pain (principal); R11.2 Nausea with vomiting, unspecified; R19.7 Diarrhea, unspecified
CPT/HCPCS: 96374

== ENCOUNTER 2018-08-08 10:03 | Emergency (ER) | payer MEDICAID ==
[2018-08-08] MEDS ORDERED: NS 1,000 ML IV ONE ×3 (10:11→13:13)
[2018-08-08] MEDS ORDERED: MAG HYDROX/AL HYDROX/SIMETH 30 ML UDCUP PO ONE (10:17)
[2018-08-08] MEDS ORDERED: HYOSCYAMINE SULFATE 0.125 MG TAB PO ONE (10:17)
[2018-08-08] MEDS ORDERED: PROMETHAZINE HCL 25 MG/ML INJ IVP ONE (10:17)
--- NOTE | 2018-08-08 10:17 | EDPHY ---
General Time Seen by Provider: 08/08/18 10:14 Narrative: CHIEF COMPLAINT: Nausea, vomiting, diarrhea HISTORY OF PRESENT ILLNESS: Patient presents by EMS and is seen shortly after arrival with complaints nausea , vomiting diarrhea. This started abruptly this morning. He has had multiple episodes of each. No blood in either of these. No dark tarry stools. No constipation. No trauma or injury. He does sleep with the [facility] where "everyone is sick."No fever. No chest pain or shortness of breath. He does have chronic and unchanged cough at night. He has not been able uses CPAP because he does not have 1 right now. He has no other associated complaints or modifying factors. REVIEW OF SYSTEMS: 10 systems were reviewed and negative with the exception of the elements mentioned in the history of present illness. PCP: Dr. Morris SPECIALISTS: None currently PAST MEDICAL HISTORY: Reviewed. Significant for type 2 diabetes, sleep apnea and GERD. PAST SURGICAL HISTORY: No abdominal surgical history SOCIAL HISTORY: Never smoker. Currently in the [facility]. Denies alcohol use. FAMILY HISTORY: Noncontributory EXAMINATION: Vitals: Triage VS reviewed General Appearance: Alert, no distress Head: normocephalic, atraumatic Eyes: Pupils equal and round, no conjunctival pallor or injection ENT, Mouth: Mucous membranes moist Neck: Normal inspection, supple, non-tender Respiratory: Lungs are clear to auscultation Cardiovascular: Regular rate and rhythm Gastrointestinal: Abdomen is soft and nondistended. No tympany rigidity. No guarding. No tenderness. Back: non-tender, no bony abnormalities Neurological: A&O, nonfocal, normal gait Skin: Warm and dry, no rash Extremities: Nontender, no pedal edema Psychiatric: Mood and affect normal DIFFERENTIAL DIAGNOSES: Including but not limited to gastroenteritis, gastritis, enteritis, pancreatitis , peptic ulcer disease, duodenitis, perforated viscus, soft diet this MDM: 10:15 a.m. Acute nausea, vomiting diarrhea that started this morning when he awoke. Patient is currently at the [facility]. He has felt some dizziness because of this. No chest pain. No shortness of breath or abdominal complaints otherwise. He has mild tachycardia but with no tachypnea or fever. He is nontoxic. Suspect gastroenteritis. Does have underlying gastritis/peptic ulcer , thus I have ordered Protonix. He has no bleeding from any site. No trauma or injury. IV is already been established. We are checking laboratory studies. IV fluid and symptomatic medications commence. 11:15 a.m. Laboratory studies reveal mild hyperkalemia. Otherwise electrolytes are within normal limits. He has no chest pain. EKG is being obtained. I have placed him on a cardiac sonographer and ordered 1 g of IV calcium gluconate for cardiac stabilization. I discussed with Dr. Abdullahi. We are continuing IV fluid resuscitation and then we will recheck his chemistry. 1:00 p.m. Patient re-evaluated. He has received his 2nd L of IV fluid and a BMP is currently running. He is feeling a little bit better at this time. 2:00 p.m. Patient has received his IV fluid resuscitation and we will recheck his chemistry. I discussed case further with Dr. Abdullahi and he will evaluate the patient. 3:00 p.m. Patient's repeat chemistry is within normal limits. His potassium is normalized. He has not vomited here in tolerating liquid intake by mouth. He has been seen by Dr. Abdullahi. We are both in agreement that he is stable for discharge home. Likely viral etiology new possibly influenza. We discussed discharge home with symptomatic medications and I have documented the screen. He will follow up with primary care physician accordingly. We discussed ED precautions. Discharged stable condition. SUPERVISION: Patient was evaluated and examined in conjunction with my secondary supervising physician as documented. We have both examined the patient. CONSULTATION: None - History History Review: I reviewed the patient's medical records Smoking Status: Never smoked - Objective Vital Signs: Initial Vital Signs Temperature (C) 98.1 F 08/08/18 10:09 Heart Rate 115 H 08/08/18 10:09 Respiratory Rate 18 08/08/18 10:09 O2 Sat (%) 92 08/08/18 10:09 O2 Delivery Mode Room Air Allergies/Adverse Reactions: fluoxetine HCl [From Prozac] Allergy (Verified 03/24/17 01:31) marijuana Allergy (Verified 03/24/17 01:31) Home Medications: Medication Instructions Recorded ASPIRIN 01/29/17 Lisinopril 01/29/17 Atorvastatin Calcium 06/19/18 Azithromycin [Zithromax] 250 mg PO DAILY #6 tab 06/19/18 Dextromethorphan Polistirex 30 mg PO BID PRN #1 btl 06/19/18 [Delsym] Ibuprofen 600 mg PO Q8 PRN #30 tablet 06/19/18 Insulin Aspart Novolog 70/30 06/19/18 Lamictal 06/19/18 Lasix 06/19/18 Omeprazole 06/19/18 Zyprexa 06/19/18 Promethazine HCl [Phenergan 25mg 25 mg PO Q8 PRN #12 tab 08/08/18 (*)] Laboratory Results: Laboratory Results 08/08/18 10:22 08/08/18 14:01 08/08/18 08/08/18 08/08/18 14:01 13:00 10:22 WBC RBC Hgb Hct MCV MCH MCHC RDW Plt Count MPV Neut % (Auto) Lymph % (Auto) [place] % (Auto) Eos % (Auto) Baso % (Auto) Nucleat RBC Rel Count Absolute Neuts (auto) Absolute Lymphs (auto) Absolute Monos (auto) Absolute Eos (auto) Absolute Basos (auto) Absolute Nucleated RBC Immature Gran % Immature Gran # RBC/WBC/PLT Morphology Platelet Estimate Sodium 139 mEq/L mEq/L REJ 137 mEq/L mEq/L (135-145) (135-145) Potassium 4.6 mEq/L mEq/L REJ 5.7 mEq/L H mEq/L (3.5-5.2) (3.5-5.2) Chloride 106 mEq/L mEq/L REJ 102 mEq/L mEq/L (97-110) (97-110) Carbon Dioxide 25 mEq/l mEq/l REJ 24 mEq/l mEq/l (22-31) (22-31) Anion Gap 8 mEq/L mEq/L REJ 11 mEq/L mEq/L (6-14) (6-14) BUN 21 mg/dL mg/dL REJ 22 mg/dL mg/dL (7-23) (7-23) Creatinine 0.9 mg/dL mg/dL REJ 0.9 mg/dL mg/dL (0.7-1.3) (0.7-1.3) Estimated GFR > 60 REJ > 60 Glucose 137 mg/dL H mg/dL REJ 224 mg/dL H mg/dL (70-100) (70-100) Calcium 8.5 mg/dL mg/dL REJ 9.4 mg/dL mg/dL (8.5-10.4) (8.5-10.4) Total Bilirubin 1.3 mg/dL mg/dL (0.1-1.4) Conjugated Bilirubin 0.3 mg/dL mg/dL (0.0-0.5) Unconjugated Bilirubin 1.0 mg/dL mg/dL (0.0-1.1) AST 24 IU/L IU/L (17-59) ALT 46 IU/L IU/L (21-72) Alkaline Phosphatase 124 IU/L IU/L (38-126) Total Protein 7.4 g/dL g/dL (6.3-8.2) Albumin 4.3 g/dL g/dL (3.5-5.0) Lipase 53 IU/L IU/L (23-300) 08/08/18 10:22 WBC 14.41 10^3/uL H 10^3/uL (3.80-9.50) RBC 6.23 10^6/uL 10^6/uL (4.40-6.38) Hgb 17.0 g/dL g/dL (13.7-17.5) Hct 51.8 % H % (40.0-51.0) MCV 83.1 fL fL (81.5-99.8) MCH 27.3 pg L pg (27.9-34.1) MCHC 32.8 g/dL g/dL (32.4-36.7) RDW 14.8 % % (11.5-15.2) Plt Count 264 10^3/uL 10^3/uL (150-400) MPV 12.0 fL H fL (8.7-11.7) Neut % (Auto) 93.8 % H % (39.3-74.2) Lymph % (Auto) 2.2 % L % (15.0-45.0) [place] % (Auto) 3.4 % L % (4.5-13.0) Eos % (Auto) 0.2 % L % (0.6-7.6) Baso % (Auto) 0.1 % L % (0.3-1.7) Nucleat RBC Rel Count 0.0 % % (0.0-0.2) Absolute Neuts (auto) 13.52 10^3/uL H 10^3/uL (1.70-6.50) Absolute Lymphs (auto) 0.32 10^3/uL L 10^3/uL (1.00-3.00) Absolute Monos (auto) 0.49 10^3/uL 10^3/uL (0.30-0.80) Absolute Eos (auto) 0.03 10^3/uL 10^3/uL (0.03-0.40) Absolute Basos (auto) 0.01 10^3/uL L 10^3/uL (0.02-0.10) Absolute Nucleated RBC 0.00 10^3/uL 10^3/uL (0-0.01) Immature Gran % 0.3 % % (0.0-1.1) Immature Gran # 0.04 10^3/uL 10^3/uL (0.00-0.10) RBC/WBC/PLT Morphology TNP Platelet Estimate TNP Sodium Potassium Chloride Carbon Dioxide Anion Gap BUN Creatinine Estimated GFR Glucose Calcium Total Bilirubin Conjugated Bilirubin Unconjugated Bilirubin AST ALT Alkaline Phosphatase Total Protein Albumin Lipase Medications Given: Discontinued Medications Al Hydroxide/Mg Hydroxide (Maalox Susp) 30 ml PO ONCE ONE Stop: 08/08/18 10:18 Last Admin: 08/08/18 11:20 Dose: 30 ml Hyoscyamine Sulfate (Levsin, Hyomax-Sl) 0.25 mg PO ONCE ONE Stop: 08/08/18 10:18 Last Admin: 08/08/18 11:16 Dose: 0.25 mg Sodium Chloride (Ns) 1,000 mls @ 0 mls/hr IV ONCE ONE PRN Reason: Wide Open Stop: 08/08/18 10:12 Last Admin: 08/08/18 10:14 Dose: 1,000 mls Sodium Chloride (Ns) 1,000 mls @ 0 mls/hr IV EDNOW ONE; Wide Open PRN Reason: Protocol Stop: 08/08/18 11:15 Last Admin: 08/08/18 11:20 Dose: 1,000 mls Calcium Gluconate (Calcium Gluconate 1 Gm (Premix)) 50 mls @ 100 mls/hr IV EDNOW ONE Stop: 08/08/18 11:43 Last Admin: 08/08/18 12:00 Dose: 50 mls Sodium Chloride (Ns) 1,000 mls @ 0 mls/hr IV EDNOW ONE; Wide Open PRN Reason: Protocol Stop: 08/08/18 13:14 Last Admin: 08/08/18 13:10 Dose: 1,000 mls Lidocaine (Lidocaine 2% Viscous) 15 ml PO ONCE ONE Stop: 08/08/18 10:18 Last Admin: 08/08/18 11:20 Dose: 15 ml Pantoprazole Sodium (Protonix) 40 mg IVP EDNOW ONE Stop: 08/08/18 10:19 Last Admin: 08/08/18 11:20 Dose: 40 mg Promethazine HCl (Phenergan) 12.5 mg IVP EDNOW ONE Stop: 08/08/18 10:18 Last Admin: 08/08/18 11:15 Dose: 12.5 mg Departure - Departure Disposition: Home, Routine, Self-Care Clinical Impression: Nausea vomiting and diarrhea, Volume depletion Condition: Good Instructions: Promethazine (By mouth), Dehydration (ED), Acute Nausea and Vomiting (ED) Additional Instructions: 1. Nausea medications as prescribed as needed 2. Monitor your blood glucose closely during this illness 3. Follow up with primary care physician shortly early next week 4. ED precautions as discussed 5. Maalox [id number] as needed for diarrhea Referrals: Syl Morris, IT CONSULTANT [Non Staff and Non MD] - As per Instructions Prescriptions: Promethazine HCl [Phenergan 25mg (*)] 25 mg PO Q8 PRN #12 tab PRN Reason: Nausea/Vomiting, Use 1st
[2018-08-08] MEDS ORDERED: PANTOPRAZOLE SODIUM 40 MG VIAL IVP ONE (10:18)
[2018-08-08 10:26] LABS: PLATELET COUNT 264 10^3/uL (150-400)
[2018-08-08] MEDS ORDERED: CALCIUM GLUCONATE 50 ML IV ONE (11:14)
[2018-08-08] MEDS: LIDOCAINE 2% VISCOUS 15 ML UDCUP PO ONE ×2 (11:16→11:20)
[2018-08-08] MEDS ORDERED: PROMETHAZINE 25 MG PREPACK #4 BTL TAKEHOME ONE (15:17)
[2018-08-08 17:25] VITALS: BP 131/91
--- NOTE | 2018-08-08 17:49 | ASMTCMCOM ---
CM Note CM Note Notes: Patient is a very pleasant homeless gentleman known to this CM and ED. He is well connected with [facility] and I have LM with Sis #[phone] to alert her of patient's ED visit as it is after hours for the clinic. Patient stays at [facility]. I have spoken with Papa at [facility] to inform him that patient was in the ED and will be returning to the half-way by 6:30 PM. Papa states that if patient is delayed in the ED he will just need to provide paperwork from his visit if he arrives after 7:00 PM. Patient confirms that he has return transportation to the half-way. Date Signed: 08/08/2018 05:48 PM Electronically Signed By:Christina Hubbard RN
--- NOTE | 2018-08-10 09:17 | CPEKG ---
Test Reason : OPEN Blood Pressure : / mmHG Vent. Rate : 113 BPM Atrial Rate : 113 BPM P-R Int : 143 ms QRS Dur : 077 ms QT Int : 313 ms P-R-T Axes : 046 038 039 degrees QTc Int : 430 ms Sinus tachycardia Probable inferior infarct, old Confirmed by Robel Blanco ([id number]) on 08/10/2018 9:16:52 AM Referred By: Confirmed By:Robel Blanco
== END 2018-08-08 17:25 | disposition home or self-care (01) ==
LOC: EDUNIT#
DX: R11.2 Nausea with vomiting, unspecified (principal); R19.7 Diarrhea, unspecified; E86.9 Volume depletion, unspecified; E11.9 Type 2 diabetes mellitus without complications; K21.9 Gastro-esophageal reflux disease without esophagitis
CPT/HCPCS: 96365; J0610; J2550

== ENCOUNTER 2018-08-21 09:27 | Emergency (ER) | payer MEDICAID ==
--- NOTE | 2018-08-21 09:56 | EDPHY ---
H & P Stated Complaint: cough Time Seen by Provider: 08/21/18 09:47 HPI/ROS: CHIEF COMPLAINT: Cough x3 days HISTORY OF PRESENT ILLNESS: 48-year-old nonsmoker male with up-to-date influenza vaccination complaining of 3 days of nonproductive cough. No sore throat. No chest pain. No dyspnea. No back pain. No syncope or near syncope. No flu-like symptoms. No fever or chills. No rash PRIMARY CARE PROVIDER: [facility] REVIEW OF SYSTEMS: 10 systems reviewed and negative with the exception of the elements mentioned in the history of present illness PAST MEDICAL & SURGICAL HISTORY: up-to-date influenza vaccination SOCIAL HISTORY:Nonsmoker PHYSICAL EXAM (Prior to examination, patient consented to physical exam, hands were washed and my usual and customary physical exam procedures followed) 1) GENERAL: Well-developed, well-nourished, alert and oriented. Appears to be in no acute distress. 2) HEAD: Normocephalic, atraumatic 3) HEENT: Pupils equal, round, reactive to light bilaterally. Sclera anicteric. Nasopharynx, oropharynx, clear, no lesions. MoistDry mucous membranes. Ears bilaterally with normal tympanic membranes. 4) NECK: Full range of motion, no meningeal signs. 5) LUNGS: mild end-expiratory wheeze bilaterally,, no rhonchi, no retractions. 6) HEART: Regular rate and rhythm, no murmur, no heave, no gallop. 7) ABDOMEN: No guarding, no rebound, no focal tenderness, negative McBurney's, negative Fernandez's, negative Rovsing's, negative peritoneal sign, 8) MUSCULOSKELETAL: Moving all extremities, no focal areas of tenderness, no obvious trauma. No peripheral edema or discoloration. 9) BACK: No CVA tenderness, no midline vertebral tenderness, no fluctuance, no step-off, no obvious trauma, no visual or palpable abnormality. 10) SKIN: No rash, no petechiae. 11) Psychiatric: Patient is oriented X 3, there is no agitation. DIFFERENTIAL DIAGNOSIS: In no particular order including but not limited to pneumonia, influenza, bronchitis - Personal History Current Tetanus/Diphtheria Vaccine: Yes Current Tetanus Diphtheria and Acellular Pertussis (TDAP): Yes Tetanus Vaccine Date: < 10 YEARS - Medical/Surgical History Hx Asthma: Yes Hx Chronic Respiratory Disease: Yes Hx Diabetes: Yes Hx Cardiac Disease: No Hx Renal Disease: No Hx Cirrhosis: No Hx Alcoholism: No Hx HIV/AIDS: No Hx Splenectomy or Spleen Trauma: No Other PMH: PSH: R shoulder; L knee scope; tooth extraction;. PMH: htn; depression; heart murmur; T2DM; chronic pain; fatty liver; sleep apnea. Asthma. Bronchitis - Social History Smoking Status: Never smoked Constitutional: Initial Vital Signs Temperature (C) 37 C 08/21/18 09:32 Heart Rate 86 08/21/18 09:32 Respiratory Rate 16 08/21/18 09:32 Blood Pressure 137/82 H 08/21/18 09:32 O2 Sat (%) 95 08/21/18 09:32 O2 Delivery Mode Room Air Allergies/Adverse Reactions: fluoxetine HCl [From Prozac] Allergy (Verified 08/21/18 09:31) marijuana Allergy (Verified 08/21/18 09:31) Home Medications: Medication Instructions Recorded ASPIRIN 01/29/17 Lisinopril 01/29/17 Atorvastatin Calcium 06/19/18 Ibuprofen 600 mg PO Q8 PRN #30 tablet 06/19/18 Insulin Aspart Novolog 70/30 06/19/18 Lamictal 06/19/18 Lasix 06/19/18 Omeprazole 06/19/18 Zyprexa 06/19/18 Promethazine HCl [Phenergan 25mg 25 mg PO Q8 PRN #12 tab 08/08/18 (*)] Albuterol [Proventil Inhaler HFA 1 - 2 puffs IH Q4PRN PRN #1 mdi 08/21/18 (*)] Benzonatate [Tessalon Pearles (RX)] 200 mg PO TID PRN #15 cap 08/21/18 Oseltamivir Phosphate [Tamiflu] 75 mg PO BIDMEAL 5 Days cap 08/21/18 Medical Decision Making - Diagnostics Imaging Results: Imaging Impressions Chest X-Ray 08/21/18 09:47 Impression: No acute process. Mild airways disease unchanged since May 2018. Images reviewed myself ED Course/Re-evaluation: Care of patient under supervision of secondary supervising physician Dr Talia Ritchie with whom I discussed case. I reviewed the patient's x-rays with him. At 11:40 a.m. He is positive for influenza A and RSV. He has been symptomatic for less than 24 hr. Patient lives at the homeless skilled nursing. Discussed the indications risks benefits of antiviral treatment and have recommended antiviral treatment and he consents. I do not think that hospitalization indicated at this time. He has no focal infiltrate on exam is maintain normal saturations. However, he will need to minimize his exposure to others. He will be discharged home. - Data Points Laboratory Results: 08/21/18 10:09 Nasal Influenza A PCR FLU A DETECTED H (NEGATIVE) Nasal Influenza B PCR NEGATIVE FOR FLU B (NEGATIVE) RSV (PCR) RSV DETECTED H (NEGATIVE) Medications Given: Discontinued Medications Albuterol/Ipratropium (Duoneb) 3 ml IH EDNOW ONE Stop: 08/21/18 10:14 Last Admin: 08/21/18 10:20 Dose: 3 ml Departure - Departure Disposition: Home, Routine, Self-Care Clinical Impression: Influenza A Condition: Good Instructions: Influenza (ED) Additional Instructions: Return to the emergency department immediately for change in breathing habits, change in voice, change in swallowing habits, change in mental status, or any other symptoms that concern you. Referrals: Syl Morris NP [Primary Care Provider] - 1-2 days without fail Prescriptions: Albuterol [Proventil Inhaler HFA (*)] 1 - 2 puffs IH Q4PRN PRN #1 mdi PRN Reason: Cough, Moderate Benzonatate [Tessalon Pearles (RX)] 200 mg PO TID PRN #15 cap PRN Reason: Cough, Moderate Oseltamivir Phosphate [Tamiflu] 75 mg PO BIDMEAL 5 Days cap
[2018-08-21] MEDS ORDERED: IPRATROPIUM/ALBUTEROL 3 ML DEYVIAL IH ONE (10:13)
[2018-08-21] MEDS ORDERED: OSELTAMIVIR PHOSPHATE 75 MG CAP PO ONE (11:46)
[2018-08-21 13:08] VITALS: BP 115/76
== END 2018-08-21 13:06 | disposition home or self-care (01) ==
DX: J10.1 Influenza due to other identified influenza virus with other respiratory manifestations (principal); J45.909 Unspecified asthma, uncomplicated; I10 Essential (primary) hypertension; R01.1 Cardiac murmur, unspecified; E11.9 Type 2 diabetes mellitus without complications; G47.33 Obstructive sleep apnea (adult) (pediatric); Z79.4 Long term (current) use of insulin; Z59.0 Homelessness

== ENCOUNTER 2018-09-01 08:08 | Emergency (ER) | payer MEDICAID ==
--- NOTE | 2018-09-01 09:11 | EDPHY ---
H & P Stated Complaint: SOB, cough. Source: Patient, Old records Exam Limitations: No limitations - Personal History Current Tetanus Diphtheria and Acellular Pertussis (TDAP): Yes Tetanus Vaccine Date: < 10 YEARS - Medical/Surgical History Hx Asthma: Yes Hx Chronic Respiratory Disease: Yes Hx Diabetes: Yes Hx Cardiac Disease: No Hx Renal Disease: No Hx Cirrhosis: No Hx Alcoholism: No Hx HIV/AIDS: No Hx Splenectomy or Spleen Trauma: No Other PMH: PSH: R shoulder; L knee scope; tooth extraction;. PMH: htn; depression; heart murmur; T2DM; chronic pain; fatty liver; sleep apnea. Asthma. Bronchitis - Social History Smoking Status: Never smoked Time Seen by Provider: 09/01/18 09:11 HPI/ROS: HPI: This is a 48-year-old male who presents with Chief Complaint: Shortness of breath, cough Location: Chest Quality: Cough, shortness of breath Duration: Several days Signs and Symptoms: no shortness of breath at rest, + shortness of breath on exertion, + nonproductive cough, no chest pain, no palpitations, no lower extremity edema, no wheezing, no orthopnea, no paroxysmal nocturnal dyspnea, no fever, no injury/trauma, no hemoptysis, no carpal pedal spasms Timing: Gradually worsened Severity: [id number] Context: Patient has a history of asthma, chronic bronchitis, nonsmoker presents with several day history of nonproductive cough and shortness of breath that is worse on exertion. Patient is homeless and reports that everyone has influenza a at the [facility] and is not covering her mouth. He was seen in this emergency room on 08/21/2018 and diagnosed with influenza a and RSV. He has been using his albuterol inhaler with transient relief of wheezing. Patient denies any wheezing, chest pain, lower extremity edema currently.b he had a chest x-ray on 08/21 that showed reactive airway disease but no opacity. He denies any fever. [facility] Patient does have a nebulizer. Modifying Factors: Albuterol inhaler Comment: ROS: A comprehensive 10 system review of systems is otherwise negative aside from elements mentioned in the history of present illness. MEDICAL/SURGICAL/SOCIAL HISTORY: PSH: R shoulder; L knee scope; tooth extraction; PMH: htn; depression; heart murmur; T2DM; chronic pain; fatty liver; sleep apnea. Asthma. Bronchitis Social history: Homeless, none smoker. CONSTITUTIONAL: Nontoxic-appearing, overweight, middle-aged white male, awake and alert, no obvious distress HEENT: Atraumatic and normocephalic, PERRL, EOMI. Nares patent; no rhinorrhea; no nasal mucosal edema. Tympanic membranes clear. Oropharynx clear, no exudate and moist pink mucosa. Airway patent. No lymphadenopathy. No meningismus. Cardiovascular: Normal S1/S2, regular rate, regular rhythm, without murmur rub or gallop. PULMONARY/CHEST: Symmetrical and nontender. Clear to auscultation bilaterally. Good air movement. No accessory muscle usage. ABDOMEN: Soft, nondistended, nontender, no rebound, no guarding, no peritoneal signs, no masses or organomegaly. No CVAT. EXTREMITIES: 2/2 pulses, strength 5/5, no deformities, no clubbing, no cyanosis or edema. NEUROLOGICAL: no focal neuro deficits. GCS 15. SKIN: Warm and dry, no erythema. no rash. Good capillary refill. (Alia Jones) Constitutional: Initial Vital Signs Temperature (C) 37.1 C 09/01/18 08:09 Heart Rate 99 09/01/18 08:09 Respiratory Rate 18 09/01/18 08:09 Blood Pressure 150/89 H 09/01/18 08:09 O2 Sat (%) 94 09/01/18 08:09 O2 Delivery Mode Room Air Allergies/Adverse Reactions: fluoxetine HCl [From Prozac] Allergy (Verified 08/21/18 09:31) marijuana Allergy (Verified 08/21/18 09:31) Home Medications: Medication Instructions Recorded ASPIRIN 01/29/17 Lisinopril 01/29/17 Atorvastatin Calcium 06/19/18 Ibuprofen 600 mg PO Q8 PRN #30 tablet 06/19/18 Insulin Aspart Novolog 70/30 06/19/18 Lamictal 06/19/18 Lasix 06/19/18 Omeprazole 06/19/18 Zyprexa 06/19/18 Albuterol [Proventil Inhaler HFA 1 - 2 puffs IH Q4PRN PRN #1 mdi 08/21/18 (*)] levOFLOXACIN [levAQUIN (*)] 500 mg PO DAILY #6 tab 01/07/19 predniSONE 50 mg PO DAILY 5 Days tablet 09/01/18 Medical Decision Making ED Course/Re-evaluation: Vital signs reviewed and no hypoxia, respiratory distress, tachycardia Chest x-ray ordered to evaluate for pneumonia Patient given DuoNeb, IM Solu-Medrol 125 mg, Tessalon Perles 200 mg, Percocet x1 CXR my read shows no opacity, no effusion, no pneumothorax Due to length of symptoms, unhealthy and asthma, patient will be given Levaquin and steroid burst refrigeration manager, Adie, spoke to the patient who is a patient [facility] in several days per week. refrigeration manager gave patient all of his medications on 08/21/2018. Patient again was given medications through the [facility]. Ambulating pulse ox was stable. Patient complaining of diarrhea, Imodium 4 mg given. Abdomen is soft and nontender and doubt surgical process or need for imaging. This patient was seen under the supervision of my secondary supervising physician. I evaluated care for this patient independently. (Alia Jones) Differential Diagnosis: Shortness of breath including but not limited to pulmonary infectious process, COPD, asthma, pulmonary embolus and congestive heart failure. (Alia Jones) Other Provider: The patient was evaluated and managed by the Physician Electrical Contractor. My co- signature indicates that I have reviewed this chart and I agree with the findings and plan of care as documented. I am the secondary supervising physician. (Mignon Del Rio) - Data Points Medications Given: Discontinued Medications Albuterol/Ipratropium (Duoneb) 3 ml IH EDNOW ONE Stop: 09/01/18 09:22 Last Admin: 09/01/18 09:29 Dose: 3 ml Benzonatate (Tessalon Pearles) 200 mg PO EDNOW ONE Stop: 09/01/18 09:22 Last Admin: 09/01/18 09:28 Dose: 200 mg Levofloxacin (Levaquin) 500 mg PO EDNOW ONE PRN Reason: Protocol Stop: 09/01/18 10:34 Last Admin: 09/01/18 10:40 Dose: 500 mg Loperamide HCl ( Imodium) 4 mg PO EDNOW ONE Stop: 09/01/18 10:06 Last Admin: 09/01/18 10:19 Dose: 4 mg Methylprednisolone Sodium Succinate (Solu-Medrol) 125 mg IM EDNOW ONE Stop: 09/01/18 09:22 Last Admin: 09/01/18 09:27 Dose: 125 mg Oxycodone/Acetaminophen (Percocet 5/325) 1 tab PO EDNOW ONE Stop: 09/01/18 09:22 Last Admin: 09/01/18 09:28 Dose: 1 tab Departure - Departure Disposition: Home, Routine, Self-Care Clinical Impression: Bronchitis with influenza, Mild asthma with exacerbation Condition: Good Instructions: Asthma (ED), Acute Bronchitis (ED) Additional Instructions: Take antibiotic and steroid burst as advised. [facility] in the next 2-3 days. Wear a mask while at the [facility]. Referrals: Syl Morris [facility] [Primary Care Provider] - As per Instructions Prescriptions: levOFLOXACIN [levAQUIN (*)] 500 mg PO DAILY #6 tab predniSONE 50 mg PO DAILY 5 Days tablet
[2018-09-01] MEDS ORDERED: methylPREDNISolone SOD SUCC 125 MG/2 ML VIAL IM ONE (09:21)
[2018-09-01] MEDS ORDERED: OXYCODONE/APAP 5/325 TAB PO ONE (09:21)
[2018-09-01] MEDS ORDERED: IPRATROPIUM/ALBUTEROL 3 ML DEYVIAL IH ONE (09:21)
[2018-09-01] MEDS ORDERED: BENZONATATE 100 MG CAP PO ONE (09:21)
[2018-09-01 10:00] VITALS: BP 153/94
[2018-09-01] MEDS ORDERED: LOPERAMIDE HCL 2 MG CAP PO ONE (10:05)
== END 2018-09-01 10:42 | disposition home or self-care (01) ==
LOC: EDUNIT#
DX: J11.1 Influenza due to unidentified influenza virus with other respiratory manifestations (principal); J45.21 Mild intermittent asthma with (acute) exacerbation
CPT/HCPCS: J2930

== ENCOUNTER 2018-10-08 13:11 | Emergency (ER) | payer MEDICAID, OTHER ==
--- NOTE | 2018-10-08 14:07 | EDPHY ---
H & P Time Seen by Provider: 10/08/18 13:57 HPI/ROS: CHIEF COMPLAINT: Right 1st metacarpal and snuffbox pain x2 weeks HISTORY OF PRESENT ILLNESS: 48-year-old [id number] male complaining of right 1st metacarpal and anatomic snuffbox pain for the past 2 weeks. Unknown if he sustained trauma or not. He does not recall specifically falling. He has reproducible pain with palpation range of motion. Denies discoloration. Denies fever chills. Denies injection into this area or other IV drug use history. PRIMARY CARE PROVIDER: REVIEW OF SYSTEMS: A ten point review of systems was performed and is negative with the exception of the items mentioned in the HPI PHYSICAL EXAM (Prior to examination, patient consented to physical exam, hands were washed and my usual and customary physical exam procedures followed) 1) GENERAL: Well-developed, well-nourished, alert and oriented. Appears to be in no acute distress. 2) HEAD: Normocephalic 3) HEENT: Pupils equal, round, reactive to light bilaterally. 4) LUNGS: Breathing comfortably. 5) MUSCULOSKELETAL: Soft tissue swelling to the right thenar eminence noted with soft compartments. He is focally tender to palpation proximal 1st metacarpal and anatomic snuffbox with no crepitus. There is no discoloration. No pain with axial loading of the joints. Normal temperature. Brisk capillary refill distally of all digits. Range of motion of the thumb at the MCP and IP joint elicits no pain. Negative kanavel sign of all digits. No discoloration. No induration. No evidence of infectious tenosynovitis, felon, paronychia, cellulitis. 6) SKIN: Intact 7) VASCULAR: pulses and cap refill present are brisk 8) NEUROLOGIC: Radial, ulnar, median nerve function intact with no deficits appreciated on exam DIFFERENTIAL DIAGNOSIS: in no particular order including but not limited to fracture, sprain, compartment syndrome Procedure: Splint A Velcro thumb spica splint was applied by ER sugarcane research technician. After application of the splint I returned and re-examined the patient. The splint was adequately immobilizing the joint and distal to the splint the patient's circulation and sensation were intact. Patient shows no signs of compartment syndrome. Was given orthopedic precautions. Smoking Status: Never smoked Constitutional: Initial Vital Signs Temperature (C) 36.9 C 10/08/18 13:22 Heart Rate 79 10/08/18 13:22 Respiratory Rate 16 10/08/18 13:22 Blood Pressure 134/86 H 10/08/18 13:22 O2 Sat (%) 94 10/08/18 13:22 O2 Delivery Mode Room Air Allergies/Adverse Reactions: fluoxetine HCl [From Prozac] Allergy (Verified 10/08/18 13:20) marijuana Allergy (Verified 10/08/18 13:20) Home Medications: Medication Instructions Recorded ASPIRIN 01/29/17 Lisinopril 01/29/17 Atorvastatin Calcium 06/19/18 Ibuprofen 600 mg PO Q8 PRN #30 tablet 06/19/18 Insulin Aspart Novolog 70/30 06/19/18 Lamictal 06/19/18 Lasix 06/19/18 Omeprazole 06/19/18 Zyprexa 06/19/18 Albuterol [Proventil Inhaler HFA 1 - 2 puffs IH Q4PRN PRN #1 mdi 08/21/18 (*)] levOFLOXACIN [levAQUIN (*)] 500 mg PO DAILY #6 tab 09/01/18 predniSONE 50 mg PO DAILY 5 Days tablet 09/01/18 [facility]/Departure - [facility] Imaging Results: Imaging Impressions Finger X-Ray 10/08/18 13:22 Impression: 1. Normal right thumb series. Images reviewed myself ED Course/Re-evaluation: Patient was re-evaluated with serial exams. Discussed his x-rays interpreted by staff radiologist showing no definitive fracture. We discussed occult fracture possibility, discussed non osseous pathology. At this time I think that septic arthritis, cellulitis, compartment syndrome are less than likely this patient. I have recommended immobilization with a thumb spica and recommended follow up with hand surgeon and provided this referral information and stressed the importance of follow-up on numerous instances. Recommended elevation, Tylenol, Motrin for discomfort. Given my usual and customary orthopedic precautions and instructions. He feels comfortable being discharged. All questions and concerns addressed by myself. I believe him to have decision-making capacity. Care of patient under supervision of secondary supervising physician Dr Jami Hendrickson . - Depart Disposition: Home, Routine, Self-Care Clinical Impression: Right wrist pain Condition: Good Instructions: Wrist Injury (ED) Additional Instructions: Return to the ER immediately if you experience discoloration, have worsening pain, numbness, tingling, or any other symptoms that concern you. If you received x-rays in the emergency department today, be advised, that ligamentous , tendon, muscular, and other non-bony injury cannot be fully ruled out. Try to keep your affected extremity elevated above the level of your chest whenever possible Adult Pain & Fever Control: We recommend Acetaminophen (Tylenol) and Ibuprofen (Motrin,Advil) for pain and fever control. When fever is high or pain severe, both drugs can be used at the same time, but at different intervals. Please note the time differences. Your dose is: Acetaminophen [650]mg every 4 to 6 hours Ibuprofen 600mg every 6 hours with food OR Note: do not take Acetaminophen with Hydrocodone (Vicodin, Lortab) or Oycodone (Percocet). These medications also contain Acetaminophen. No more than 3000mg of Acetaminophen should be taken in 24 hours (for an adult). Referrals: George Raymond MD [Medical Doctor] - 2-3 days, call for appt.
[2018-10-08 14:25] VITALS: BP 141/79
== END 2018-10-08 14:25 | disposition home or self-care (01) ==
DX: M79.644 Pain in right finger(s) (principal); M25.531 Pain in right wrist
CPT/HCPCS: L3807

== ENCOUNTER 2018-11-07 19:56 | Emergency (ER) | payer MEDICAID ==
--- NOTE | 2018-11-07 20:02 | EDPHY ---
H & P Time Seen by Provider: 11/07/18 20:01 - Personal History Tetanus Vaccine Date: < 10 YEARS - Medical/Surgical History Hx Asthma: Yes Hx Chronic Respiratory Disease: Yes Hx Diabetes: Yes Hx Cardiac Disease: No Hx Renal Disease: No Hx Cirrhosis: No Hx Alcoholism: No Hx HIV/AIDS: No Hx Splenectomy or Spleen Trauma: No Other PMH: PSH: R shoulder; L knee scope; tooth extraction;. PMH: htn; depression; heart murmur; T2DM; chronic pain; fatty liver; sleep apnea. Asthma. Bronchitis - Social History Smoking Status: Never smoked Constitutional: Initial Vital Signs Temperature (C) 37 C 11/07/18 20:04 Heart Rate 86 11/07/18 20:04 Respiratory Rate 16 11/07/18 20:04 Blood Pressure 155/107 H 11/07/18 20:04 O2 Sat (%) 96 11/07/18 20:04 O2 Delivery Mode Nasal Cannula O2 (L/minute) 2 Allergies/Adverse Reactions: fluoxetine HCl [From Prozac] Allergy (Verified 11/07/18 20:04) marijuana Allergy (Verified 11/07/18 20:04) Home Medications: Medication Instructions Recorded ASPIRIN 01/29/17 Lisinopril 01/29/17 Atorvastatin Calcium 06/19/18 Ibuprofen 600 mg PO Q8 PRN #30 tablet 06/19/18 Insulin Aspart Novolog 70/30 06/19/18 Lamictal 06/19/18 Lasix 06/19/18 Omeprazole 06/19/18 Zyprexa 06/19/18 Albuterol [Proventil Inhaler HFA 1 - 2 puffs IH Q4PRN PRN #1 mdi 08/21/18 (*)] levOFLOXACIN [levAQUIN (*)] 500 mg PO DAILY #6 tab 09/01/18 predniSONE 50 mg PO DAILY 5 Days tablet 09/01/18 Albuterol [Proventil Inhaler] 1 - 2 puffs IH Q4 #1 mdi 11/07/18 methylPREDNISolone [Medrol Dose 1 each PO AD #1 ea 11/07/18 Koby] Medical Decision Making ED Course/Re-evaluation: CHIEF COMPLAINT: Shortness of breath HISTORY OF PRESENT ILLNESS: The patient is a 48 y/o male with a history of asthma arriving via EMS complaining of shortness of breath onset several hours ago. He is unsure what caused the shortness of breath, but it was a sudden onset. He denies using supplemental oxygen at home. Due to this shortness of breath he called EMS. While en route to the ED he was given a nebulizer and Solu-Medrol which improved his symptoms. No fever, headache, body aches, lightheadedness, chest pain, heart palpitations, cough, abdominal pain, urinary or bowel complaints, numbness, paresthesias. REVIEW OF SYSTEMS: A comprehensive 10 system review of systems is otherwise negative aside from elements mentioned in the history of present illness and medical decision making. PHYSICAL EXAM: HR, BP, O2 Sat, RR. Temp noted General Appearance: Alert, well hydrated, appropriate, and non-toxic appearing. Head: Atraumatic without scalp tenderness or obvious injury Eyes: Pupils equal, round, reactive to light and accommodation, EOMI, no trauma , no injection. Ears: Clear bilaterally, no perforation, normal landmarks Nose: Atraumatic, no rhinorrhea, clear. Throat: There is no erythema or exudates, no lesions, normal tonsils, mucus membranes moist. Neck: Supple, 2+ carotid upstroke, nontender, no lymphadenopathy. Respiratory: Talking in full sentences. No retractions, no distress, no wheezes , and no accessory muscle use. Lungs are clear to auscultation bilaterally. Cardiovascular: Regular rate and rhythm, no murmurs, rubs, or gallops. Bilateral carotid, radial, dorsalis pedis, and posterior tibial pulses intact. Good capillary refill all extremities. Gastrointestinal: Abdomen is soft, nontender, non-distended, no masses, no rebound, no guarding, no peritoneal signs. Musculoskeletal: Normal active ROM of all extremities, atraumatic. Neurological: Alert, appropriate, and interactive. The patient has normal DTRs and non-focal cranial nerves, motor, sensory, and cerebellar exam. Skin: No rashes, good turgor, no nodules on palpation. Past medical history: Hypertension, depression, heart murmur, T2DM, chronic pain , fatty liver, sleep apnea, asthma, bronchitis Past surgical history: R shoulder, L knee scope, tooth extraction Family history: Denies Social history: Employed, lives in [place], single DIAGNOSTICS/PROCEDURES/CRITICAL CARE TIME: Chest x-ray: No acute findings DIFFERENTIAL DIAGNOSIS: The differential diagnosis for the patient's shortness of breath and hypoxemia included but was not limited to pneumonia, myocardial infarction, acute mountain sickness, high altitude pulmonary edema, congestive heart failure, and pulmonary embolus. MEDICAL DECISION MAKING: The patient is a 48 y/o male with a history of asthma arriving via EMS presenting with shortness of breath onset several hours ago. While en route to the ED he was given a nebulizer and Solu-Medrol which improved his symptoms. On exam he is talking in full sentences and has an unremarkable respiratory exam. Chest x-ray ordered. 2026: Reassessed patient and discussed imaging findings. Patients symptoms are consistent with an asthma exacerbation. I have advised him to follow up with his PCP and take a medrol dose pack as prescribed. Return precautions provided; patient is comfortable with this plan. Departure - Departure Disposition: Home, Routine, Self-Care Clinical Impression: Shortness of breath Exacerbation of asthma Qualifiers: Asthma severity: mild Asthma persistence: unspecified Qualified Code(s): J45.901 - Unspecified asthma with (acute) exacerbation Condition: Good Instructions: Asthma (ED), Shortness of Breath (ED) Additional Instructions: 1. Take the Medrol dose pack as prescribed. 2. Follow-up with your primary doctor within 72 hours. 3. Return to the Emergency Department for fever, chest pain, shortness of breath , increasing pain or other worsening of condition. Referrals: [facility],. [Clinic] - As per Instructions Prescriptions: Albuterol [Proventil Inhaler] 1 - 2 puffs IH Q4 #1 mdi methylPREDNISolone [Medrol Dose Koby] 1 each PO AD #1 ea Report Scribed for: Wilbert Palacios Report Scribed by: Vannessa Hendricks Date of Report: 11/07/18 Time of Report: 20:02
[2018-11-07 20:35] VITALS: BP 151/76
== END 2018-11-07 20:34 | disposition home or self-care (01) ==
LOC: EDUNIT#
DX: J45.901 Unspecified asthma with (acute) exacerbation (principal); I10 Essential (primary) hypertension; E11.9 Type 2 diabetes mellitus without complications; F32.9 Major depressive disorder, single episode, unspecified; G89.29 Other chronic pain; G47.30 Sleep apnea, unspecified

== ENCOUNTER 2019-01-15 10:26 | Emergency (ER) | payer MEDICAID ==
--- NOTE | 2019-01-15 10:54 | EDPHY ---
General - History Smoking Status: Never smoked Time Seen by Provider: 01/15/19 10:54 Narrative: CLINICAL IMPRESSION: Left shoulder pain ASSESSMENT/PLAN: Patient is a 48-year-old homeless gentleman with a history of hypertension, hyperlipidemia, depression, reflux and longstanding left shoulder issues presents to the emergency department with an acute exacerbation of pain of his left shoulder. Patient is afebrile, he is not toxic appearing and in no acute distress. In light of patient's history, considered ACS as possible etiology, an ECG was obtained and reviewed by myself and Dr. Bustos. ECG revealed normal sinus rhythm with no evidence of acute ischemia- unchanged since 2016 ECG. There were no findings today to suggest ACS. Patient has reproducible left shoulder pain with limited range of motion secondary to pain. X-ray revealed moderate osteoarthritis. There were no findings to suggest cervical radiculopathy, septic arthritis, upper extremity DVT or neurovascular compromise. Patient with a known history of rotator cuff injury, states that it feels exactly like when he injured his shoulder initially. I suspect his symptoms today are secondary to underlying osteoarthritis and rotator cuff injury. The patient was given ibuprofen and will continue Tylenol or ibuprofen as needed for pain. The patient uses a walker for ambulation, I did not feel he was a good candidate for sling. Discussed activity as tolerated. He will follow up with PCP and ortho referral was given. DIFFERENTIAL DX: Differential diagnosis including but not limited to and in no particular order, radiculopathy, rotator cuff injury, sprain, fracture, dislocation, ACS ED COURSE: 1124: An ECG was obtained and reviewed no evidence of acute ischemia. When compared to ECG in 2016, unchanged. No evidence of ACS. This ECG was reviewed by Dr. Bustos, case discussed with her. 1139: Left shoulder x-ray reveals moderate osteoarthritis. CHIEF COMPLAINT: Left shoulder pain HPI: Patient is a homeless gentleman with a history of hypertension, hyperlipidemia, depression and reflux who presents to the emergency department with left shoulder pain. Patient reports a history of known left rotator cuff injury, reports similar pain today when he originally injured his left rotator cuff. He has been seen by Orthopedic however has been told that he is not a good surgical candidate. Patient reports he woke up this morning, started to move around when he began experiencing generalized left shoulder pain with radiation into his trap and down his arm. He is experiencing some tingling sensation of his fingers. He experiences pain with all range of motion of his left shoulder , denies any upper arm, elbow, hand or finger pain. Patient denies any midline neck or back pain. He denies any chest pain or shortness of breath. He has had no diaphoresis. Has not tried taking anything for the pain. Patient with cardiac workup in 2016 which included a profusion stress test which was found to be normal. PMH: Hypertension, depression, heart murmur, type 1 diabetes, chronic pain, fatty liver, sleep apnea Pertinent Past Surgical History: Right shoulder, left knee, tooth extraction Social History: Homeless, followed by [facility]. [facility]. Denies any cigarette smoking or illicit drug use. REVIEW OF SYSTEMS: All other systems negative Constitutional: No fever, no chills, appetite change. Eyes: No discharge, vision change ENT: No sore throat, congestion, ear pain. Cardiovascular: No chest pain, no palpitations. Respiratory: No cough, no shortness of breath. Gastrointestinal: No abdominal pain, no vomiting, diarrhea. Genitourinary: No hematuria, dysuria, flank pain. Musculoskeletal: Left shoulder pain. No back pain, joint swelling, myalgias. Skin: No rashes, color change. Neurological: No headache, dizziness, weakness. PHYSICAL EXAM: General Appearance: Obese, no acute distress and not toxic-appearing. HENT: Normocephalic, atraumatic. Bilateral external ears are normal. Bilateral tympanic membranes are normal with pearly chapin reflex. Nares are clear, mucosa is pink. Oropharynx is clear, uvula is midline. There is no tonsillar enlargement or exudate. The dentition is normal. Eyes: PERRLA, EOMI. Conjunctiva pink, no pallor or injection Respiratory: There are no retractions, lungs are clear to auscultation. Cardiac: Regular rate and rhythm, no murmurs or gallops. Gastrointestinal: Abdomen is soft, nontender, bowel sounds normal, no masses/ hernia, no rigidity, guarding or focal peritoneal findings. Neurological: Alert and oriented x 3, CN 2-12 grossly intact, normal sensation and strength Skin: Warm, dry, no rashes, no nodules on palpation. Upper Extremities: Right upper extremity is unremarkable, nontender with full range of motion. No clavicle tenderness or deformity bilaterally. No increased warmth on palpation. No obvious deformity, abrasions, ecchymosis. No atrophy or asymmetry compared to opposite side. Limited ROM to flexion/extension/abduction/adduction, pain elicited with all movement. 2+ radial pulses with capillary refill < 2 seconds. 5/5 strength at fingers, wrist, elbow. Resisted wrist extension (radial nerve): normal. Resisted thumb opposition ( median nerve): normal. Resisted finger abduction (ulnar nerve): normal. Sensation intact throughout. Neck: Patient is mildly tender left trapezius and left cervical paraspinal muscles. FROM intact to flexion/extension/rotational movement. No midline tenderness. No step-off or deformity. Back: No step-off, palpable bony abnormality, edema, erythema or ecchymosis of the cervical, thoracic or lumbar spines. Thoracic and lumbar spines with no midline or paraspinal muscle tenderness to palpation. Full range of motion of all spines. 5/5 and equal strength of the UEs and LEs bilaterally including shoulder shrug ( except right shoulder as mentioned above). Pulses: 2+ and equal radial, DP and PT pulses bilaterally. Sensation intact and symmetric to light touch from face, UEs and LEs bilaterally. Psychiatric: Mood and affect are normal, there is no agitation. MEDICAL DECISION MAKING: Patient was seen independently. Secondary supervising physician at time of evaluation was Dr. Bustos, she did not evaluate this patient. Diagnosis: Left shoulder pain. Summary: See Assessment and Plan for summary of ED visit Independent visualization of images, tracing, or specimens: Yes / No. Decision to obtain medical records or history from someone other than the patient: No Review / Summarize previous medical records: Yes Discussed patient with another provider: Yes, Dr. Bustos Patient Progress: Stable, discharge. (Susana Jason) The patient was evaluated and managed by the physician hospital medical assistant. I have reviewed this chart and I agree with the findings and plan of care as documented , as indicated by my signature. I am the secondary supervising physician. ( Natasha Bustos) - Objective Vital Signs: Initial Vital Signs Temperature (C) 36.6 C 01/15/19 10:30 Heart Rate 90 01/15/19 10:30 Respiratory Rate 18 01/15/19 10:30 Blood Pressure 129/83 H 01/15/19 10:30 O2 Sat (%) 95 01/15/19 10:30 O2 Delivery Mode Room Air Allergies/Adverse Reactions: fluoxetine HCl [From Prozac] Allergy (Verified 01/15/19 10:29) marijuana Allergy (Verified 01/15/19 10:29) Home Medications: Medication Instructions Recorded ASPIRIN 01/29/17 Lisinopril 01/29/17 Atorvastatin Calcium 06/19/18 Ibuprofen 600 mg PO Q8 PRN #30 tablet 06/19/18 Insulin Aspart Novolog 70/30 06/19/18 Lamictal 06/19/18 Lasix 06/19/18 Omeprazole 06/19/18 Zyprexa 06/19/18 Albuterol [Proventil Inhaler HFA 1 - 2 puffs IH Q4PRN PRN #1 mdi 08/21/18 (*)] levOFLOXACIN [levAQUIN (*)] 500 mg PO DAILY #6 tab 09/01/18 predniSONE 50 mg PO DAILY 5 Days tablet 09/01/18 Albuterol [Proventil Inhaler] 1 - 2 puffs IH Q4 #1 mdi 11/07/18 methylPREDNISolone [Medrol Dose 1 each PO AD #1 ea 11/07/18 Koby] Medications Given: Discontinued Medications Ibuprofen (Motrin) 600 mg PO EDNOW ONE Stop: 01/15/19 11:38 Last Admin: 01/15/19 12:27 Dose: 600 mg Departure - Departure Disposition: Home, Routine, Self-Care Clinical Impression: Left shoulder pain Condition: Good Instructions: Shoulder Pain (ED) Additional Instructions: DISCHARGE INSTRUCTIONS FROM YOUR PROVIDER Thank you for visiting our emergency department today. Please keep in mind that discharge from the emergency department does not mean that there is nothing wrong - it simply means that we have not identified an emergency condition that requires further evaluation or treatment in the hospital. You should always plan to follow up with primary care for re-evaluation of your condition in the next 2-3 days. If you have been referred to a specialist, please call as soon as possible ( today or tomorrow) to schedule your follow up appointment at the appropriate time, you have been provided a orthopedic referral. Rest, no heavy lifting, pushing, pulling, carrying with the affected arm. Apply ice on and off to the painful area, whichever feels better. Gentle range of motion exercises several times daily to prevent your shoulder from stiffening up -- pendulum exercises as we discussed. Avoid prolonged immobilization as we discussed as shoulder injuries are prone to "frozen shoulder" which is a significant complication and requires intensive physical therapy to rehabilitate. Ibuprofen 600 mg every 8 hours with food as needed for pain. Stop if this upsets your stomach. Do not exceed 2400 mg in 24 hours. It should only be used short term and not combined with other prescription or over the counter NSAIDs ( anti-inflammatories). Continue your regular medication as prescribed. Call and schedule with a primary care provider for a follow-up appointment and to establish care for your primary care needs. Return for increased or unmanageable pain, inability to move the shoulder or neck, fever, chills, redness, warmth, swelling, numbness, tingling or weakness of the arm, loss of nurse orthopedic strength, coolness of the fingertips, chest pain, shortness of breath, or for any other new, worsening or worrisome symptoms. People present with illnesses and injuries in different ways, and it is always possible that we have missed something. Again, thank you for choosing our emergency department. We hope that you feel better. Referrals: Syl Morris NP [Primary Care Provider] - 1-2 days without fail Liz Bhakta MD [Medical Doctor] - 2-3 days, call for appt.
[2019-01-15] MEDS ORDERED: IBUPROFEN 600 MG TAB PO ONE (11:37)
[2019-01-15 12:32] VITALS: BP 132/70
--- NOTE | 2019-01-15 16:27 | CPEKG ---
Test Reason : OPEN Blood Pressure : / mmHG Vent. Rate : 078 BPM Atrial Rate : 078 BPM P-R Int : 161 ms QRS Dur : 080 ms QT Int : 359 ms P-R-T Axes : 047 001 010 degrees QTc Int : 409 ms Sinus rhythm Inferior infarct, old Confirmed by Natasha Bustos ([id number]) on 01/15/2019 4:26:44 PM Referred By: Natasha Bustos Confirmed By:Natasha Bustos
== END 2019-01-15 12:32 | disposition home or self-care (01) ==
DX: M19.012 Primary osteoarthritis, left shoulder (principal); I10 Essential (primary) hypertension; E78.5 Hyperlipidemia, unspecified; E10.9 Type 1 diabetes mellitus without complications; Z59.0 Homelessness

== ENCOUNTER 2019-02-20 08:27 | Emergency (ER) | payer MEDICAID | END 2019-02-20 09:57 | disposition home or self-care (01) ==